=== PATIENT | female | born 1945 | race Caucasian/White ===

== ENCOUNTER 2019-10-29 12:10 | Emergency (ER) | payer OTHER, MEDICAID, SELFPAY ==
[2019-10-29 12:21] VITALS: BP 183/78; PULSE 80; RESP 18; TEMP 37.3; O2SAT 100
--- NOTE | 2019-10-29 12:32 | ED.GENADULT ---
HPI - General Adult General Chief complaint: Extremity Injury, Lower Stated complaint: Left foot injury Time Seen by Provider: 10/29/19 12:32 Source: patient and RN notes reviewed Limitations: no limitations History of Present Illness HPI narrative: 74-year-old female presents today with needing a tetanus vaccine update and complaints of left foot pain and swelling after stepping on a nail for 1 day. Cleansed area with alcohol and peroxide without relief. Hurts to bear weight. No radiation of pain. No numbness, tingling, or loss of mobility. Exacerbating factor applying weight. Denies inability to bear weight. Denies discoloration. Denies suspect foreign body. Denies fever or chills. Tetanus not up-to-date, will update today. Denies headaches, weakness, fatigue, myalgia. Denies chest pain or dyspnea. Denies cough, rhinorrhea, congestion, sore throat, nausea, vomiting, abdominal pain, and diarrhea. Tolerating po intake well. Denies recent traveling. Denies concerns for COVID-19 or exposures been home since [id number] order except for essential household needs and returned home. Remains active. Some parts of this dictation were generated by voice recognition software and may contain typographical and/or grammatical inaccuracies. Related Data Home Medications Medication Instructions Recorded Confirmed aspirin 81 mg tablet,delayed 81 mg PO DAILY 06/12/19 release ciclopirox 8 % topical solution 1 applic TOPICAL DAILY 06/12/19 clobetasol 0.05 % topical cream 1 applic TOPICAL QAM AND QPM 06/12/19 Allergies Allergy/AdvReac Type Severity Reaction Status Date / Time Jlnpwax-Hsv-Gfz Reductase Allergy Unknown unknown Verified 06/12/19 10:06 Inhibitor tramadol AdvReac Unknown Other Verified 04/24/17 13:37 Review of Systems Review of Systems: Narrative: CONSTITUTIONAL: Denies fever, chills, sweats. EYES: Denies visual changes, redness, discharge. ENT: Denies rhinorrhea, congestion, sore throat, otalgia. CARDIOVASCULAR: Denies chest pain, palpitations, edema. RESPIRATORY: Denies dyspnea, wheezing, cough. GASTROINTESTINAL: Denies abdominal pain, nausea, vomiting, diarrhea. GENITOURINARY: Denies dysuria, hematuria, abnormal discharge. SKIN: Denies rash or itching. MUSCULOSKELETAL: Denies acute back pain or myalgia. Complains of pain and swelling to left foot. NEUROLOGIC: Denies numbness or focal weakness. PSYCHIATRIC: Denies anxiety or depression. [facility] Past Medical History Medical History BP (high blood pressure) CAD (coronary artery disease), [place] coronary artery Chronic kidney disease, stage 3 (moderate) Diabetic neuropathy associated with type 2 diabetes mellitus MALIA (generalized anxiety disorder) Mixed hyperlipidemia Psoriasis Type 2 diabetes mellitus with diabetic chronic kidney disease Surgical History Surgical History H/O parathyroidectomy S/P CABG x 3 Family History Family History Mother Family history of diabetes mellitus in first degree relative Family history of heart disease in male family member before age 55 Hypertension Family history of type 2 diabetes mellitus Patient's mother is Father Family history of heart disease in male family member before age 55 Sibling Acute myocardial infarction, Onset Age: 68 Social History Social History Smoking packs per day: 0.5 Smoking cigarettes per day: 10.0 Smoking status: Former smoker Tobacco type: cigarettes Second hand tobacco smoke exposure: No Smoking end date: 07/11/1968 Alcohol intake: never Substance use: never Substance use type: does not use Gender identity (if verbalized by the patient): Female Comments At time of signature, agree with nurse sammy costa
[2019-10-29] MEDS: TETANUS/DIPHTHERIA TOXOIDS ADSORB 0.5 ML VIAL (*BKC) IM (12:47)
[2019-10-29 12:52] VITALS: BP 170/74
== END 2019-10-29 13:07 | disposition home or self-care (01) ==
PROVIDERS: Emergency Provider Nurse Practitioner Family; PCP Family Medicine
DX: S91.332A Puncture wound without foreign body, left foot, initial encounter (principal); I25.10 Atherosclerotic heart disease of native coronary artery without angina pectoris; I12.9 Hypertensive chronic kidney disease with stage 1 through stage 4 chronic kidney disease, or unspecified chronic kidney disease; E11.22 Type 2 diabetes mellitus with diabetic chronic kidney disease; N18.9 Chronic kidney disease, unspecified; N18.3 Chronic kidney disease, stage 3 (moderate); Z79.82 Long term (current) use of aspirin; Z23 Encounter for immunization; E78.2 Mixed hyperlipidemia; E11.40 Type 2 diabetes mellitus with diabetic neuropathy, unspecified; Z95.1 Presence of aortocoronary bypass graft; E89.2 Postprocedural hypoparathyroidism; Z87.891 Personal history of nicotine dependence; W45.0XXA Nail entering through skin, initial encounter
CPT/HCPCS: 90471; 90714; 99213; G0463

== ENCOUNTER 2021-01-01 08:20 | Outpatient (CLI) | payer OTHER, SELFPAY ==
--- NOTE | ~2021-01-01 | US_ITS ---
EXAMINATION: US carotid duplex BI DATE: 01/01/2021 09:10 INDICATION: Bilateral carotid bruits TECHNIQUE: Grayscale, color Doppler, and pulsed Doppler images of the cervical carotid arteries were obtained. The degree of vessel stenosis is placed in one of the following categories: normal, <50%, 5 0-69%, >=70% but less than near-occlusion, near-occlusion, or total occlusion. Note that percent sten osis relative to normal distal artery lumen diameter is indirectly measured from velocity measurement s as described by Siddhartha, et al. Radiology 2003; 229:340-346. Notes: Normal: Peak systolic velocity <125 centimeters/sec and no plaque <50%. Peak systolic velocity <125 ( EDV <40; ICA/CCA PSV ratio <2.0; used these factors only a tandem lesions or low cardiac output or co ntralateral disease) 50-69 %: PSV 125-230 (EDV 40-100; ratio 2-4) >= 70% but less than near occlusion: PSV greater than 230 (EDV > 100; ratio> 4.0) Near Occlusion: PSV that is variable; markedly narrowed lumen Occlusion: Absent flow on color/spectral Doppler and no lumen on cheng scale. COMPARISON: None. FINDINGS: RIGHT: The right common carotid artery (CCA) peak systolic velocity (PSV) is 68 cm/s. The right internal car otid artery (ICA) PSV is 134 cm/s. The right ICA end-diastolic velocity (EDV) is 29 cm/s. The right I CA/CCA PSV ratio is 2.0. The external carotid artery (ECA) PSV is 204 cm/s. There is antegrade flow i n the right vertebral artery. LEFT: The left CCA PSV is 69 cm/s. The left ICA PSV is 121 cm/s. The left ICA EDV is 35 cm/s. The left ICA/ CCA PSV ratio is 1.8. The ECA PSV is 106 cm/s. There is antegrade flow in the left vertebral artery. IMPRESSION: 1. 50-69% stenosis in the right internal carotid artery by sonographic criteria. 2. Less than 50% stenosis in the left internal carotid artery by sonographic criteria. Reviewed, dictated and finalized at location B. IMPRESSION: 1. 50-69% stenosis in the right internal carotid artery by sonographic criteria . 2. Less than 50% stenosis in the left internal carotid artery by sonographic cr iteria.
== END 2021-01-01 08:21 | disposition home or self-care (01) ==
PROVIDERS: PCP Family Medicine; Visit Provider Internal Medicine Cardiovascular Disease
DX: I65.23 Occlusion and stenosis of bilateral carotid arteries (principal); R09.89 Other specified symptoms and signs involving the circulatory and respiratory systems
CPT/HCPCS: 93880

== ENCOUNTER → 2021-01-15 10:03 | Outpatient (CLI) | payer OTHER, SELFPAY ==
--- NOTE | ~2021-01-15 | DEXA_ITS ---
Bone Density Report Name: Adina Russell Age: 75 Sex: Female Ethnicity: White Date of : 1945 Indication: postmenopausal; screening for osteoporosis; Referring Provider: Cheryl Zabala Study: Bone densitometry was performed. Exam Date: January 15, 2021 Accession number: [id number] Bone Density: Region BMD T-score Z-score Classification AP Spine (L1-L4) 1.170 1.1 3.5 Normal Femoral Neck (Left) 0.726 -1.1 0.9 Osteopenia Total Hip (Left) 0.897 -0.4 1.4 Normal Femoral Neck (Right) 0.807 -0.4 1.7 Normal Total Hip (Right) 0.981 0.3 2.1 Normal Total Hip Mean 0.939 -0.1 1.8 Normal World Health Organization criteria for BMD impression classify patients as: Normal (T-score at or above -1.0), Osteopenia (T-score between -1.0 and -2.5), or Osteoporosis (T-score at or below -2.5). 10-year Fracture Risk(1): Major Osteoporotic Fracture 9.4% Hip Fracture 1.4% Reported Risk Factors: [place] (), Neck BMD=0.726, BMI=32.2 (1) FRAX(R) Version 3.08. Fracture probability calculated for an untreated patient. Fracture probability may be lower if the patient has received treatment. Previous Exams: Region Exam Age BMD T-score BMD Change BMD Change Date g/cm2 vs Baseline vs Previous AP Spine(L1-L4) 01/15/2021 75 1.170 1.1 0.024* 0.024* 09/05/2015 69 1.146 0.9 Total Hip(Left) 01/15/2021 75 0.897 -0.4 -0.005 -0.005 09/05/2015 69 0.902 -0.3 Total Hip(Right) 01/15/2021 75 0.981 0.3 0.015 0.015 09/05/2015 69 0.965 0.2 *Denotes significance at 95% confidence level, LSC for AP Spine = 0.022 g/cm2, LSC for Total Hip = 0.027 g/cm2 Clinical Information Provided by Patient: Has used the following medications: Vitamin D, MTV Patient maximum height was 65 Menopause Age: 60 No regular weight bearing exercise Drinks caffeinated beverages Onset of menses at age 13 Number of children 3 Missed period for more than 6 months in a row Impression: The patient has low bone mass, based on the Left Femoral Neck T-score. The patient has an estimated ten-year risk of hip fracture of 1.4% and an estimated ten-year risk of major fracture of 9.4%, based on the WHO FRAX algorithm. No significant bone loss was observed. Discussion: BONE DENSITY IS LOW AT ONE OR MORE SKELETAL SITES. This patient's lowest T-score is low at one or more skeletal sites. It meets the World Health Organizatio
--- NOTE | ~2021-01-15 | MM_ITS ---
EXAMINATION: MM screening daniel BI w tanika HISTORY: Screening mammogram, family history of breast cancer in her sister. TECHNIQUE: Craniocaudal and mediolateral oblique 3-D tomosynthesis images were obtained and synthetic 2-D images were generated. CAD analysis was submitted and interpreted. COMPARISON: 05/01/2019, 03/29/2017, 09/05/2015 BREAST PARENCHYMAL COMPOSITION: There are scattered areas of fibroglandular density. FINDINGS: Scattered benign-appearing calcifications are present. There is no evidence of suspicious m ass, calcification, or architectural distortion to suggest malignancy in either breast. There has bee n no suspicious interval change. IMPRESSION: 1. No mammographic evidence of malignancy. 2. Recommend routine screening mammography in one year. BI-RADS Category 2: Benign finding(s). Reviewed, dictated and finalized at location A.
== END ==
PROVIDERS: PCP Family Medicine; Visit Provider Physician Assistant
DX: Z12.31 Encounter for screening mammogram for malignant neoplasm of breast (principal); Z78.0 Asymptomatic menopausal state; M85.852 Other specified disorders of bone density and structure, left thigh
CPT/HCPCS: 77063; 77067; 77080

== ENCOUNTER → 2021-03-09 11:47 | Outpatient (CLI) | payer OTHER, MEDICAID, SELFPAY ==
--- NOTE | ~2021-03-09 | US_ITS ---
EXAMINATION: US renal BI EXAM DATE: 03/09/2021 12:02 INDICATION: Acute kidney failure, not otherwise specified TECHNIQUE: Multiple grayscale and Doppler images of the kidneys were obtained (by a technologist who performed the scan) and subsequently reviewed. There is no prior study for comparison. FINDINGS: Right kidney: There is normal contour and echogenicity. It measures 10.7 x 4.3 x 5.8 centimeters. T here are no focal renal lesions identified. There is no hydronephrosis. Left kidney: There is normal contour and echogenicity. It measures 11.5 x 4.8 x 5.0 centimeters. The re is a cyst in the superior pole measuring 3 cm. There is no hydronephrosis. Bladder unremarkable. IMPRESSION: 1. Sonographically unremarkable kidneys. Reviewed, dictated and finalized at location B.
== END ==
PROVIDERS: PCP Family Medicine; Visit Provider Internal Medicine Nephrology
DX: N17.9 Acute kidney failure, unspecified (principal)
CPT/HCPCS: 76775

== ENCOUNTER 2021-06-02 08:28 | Emergency (ER) | payer OTHER, SELFPAY ==
[2021-06-02 08:35] VITALS: BP 158/68; PULSE 75; RESP 18; TEMP 36.8; O2SAT 98
[2021-06-02 08:42] VITALS: BP 158/68; PULSE 18; RESP 18; O2SAT 98
--- NOTE | 2021-06-02 08:50 | ED.BACK ---
HPI - Back Pain/Injury General Chief Complaint: Back Pain/Injury Stated Complaint: Think I have a sciatic nerve pain Time Seen by Provider: 06/02/21 08:41 Source: patient Mode of arrival: ambulatory Limitations: no limitations History of Present Illness HPI Narrative: Patient is a 75-year-old female complaining of left buttocks pain radiating to her left lower extremity, 8 out of 10, sharp, worse with movement started yesterday. Patient states that she has a history of sciatica. Patient denies any injury. Patient denies any numbness, weakness or incontinence. Patient denies any chest pain, shortness of breath, abdominal pain, flank pain, nausea, vomiting, urinary symptoms, fever or chills. Related Data Home Medications Medication Instructions Recorded Confirmed aspirin 81 mg tablet,delayed 81 mg PO DAILY 06/12/19 05/14/21 release Allergies Allergy/AdvReac Type Severity Reaction Status Date / Time Evmxggw-AEW-NtN Reductase Allergy Unknown unknown Verified 05/14/21 09:08 Inhibitor [Ihdugnt-Dss-Pte Reductase Inhibitor] tramadol AdvReac Unknown Other Verified 05/14/21 09:08 Review of Systems Review of Systems: All systems reviewed & are unremarkable except as noted in HPI and below Constitutional: Constitutional: Denies body ache(s), Denies chills, Denies excessive sweating, Denies fatigue, Denies fever(s), Denies headache(s), Denies lethargy, Denies malaise, Denies weakness and Denies weight loss Eyes: Eyes: Denies blurry vision, Denies change in vision and Denies loss of vision ENT: Denies dizziness, Denies ear discharge, Denies headache(s), Denies lip swelling, Denies epistaxis, Denies nasal congestion, Denies neck pain, Denies throat swelling and Denies tongue swelling Cardiovascular: Cardiovascular: Denies chest pain, Denies chest pain at rest, Denies chest pain with activity, Denies diaphoresis, Denies rapid heart rate, Denies edema, Denies irregular heart rhythm, Denies lightheadedness, Denies palpitations, Denies dyspnea and Denies dyspnea on exertion Respiratory: Respiratory: Denies chest congestion, Denies cough, Denies hemoptysis, Denies dyspnea and Denies dyspnea on exertion Gastrointestinal: Gastrointestinal: Denies abdominal pain, Denies melena, Denies hematochezia, Denies diarrhea, Denies nausea, Denies vomiting and Denies hematemesis Musculoskeletal: Musculoskeletal: Denies abnormal gait, Denies deformity, Denies joint swelling, Denies limited range of motion, Denies neck pain and Denies numbness Neurologic: Denies Abnormal speech present, Denies abnormal gait, Denies confusion, Denies dizziness, Denies headache(s), Denies focal weakness, Denies loss of vision, Denies numbness, Denies Other visual disturbances, Denies Sensory deficit (Neuro) and Denies weakness Psychiatric: Psychiatric: Denies confusion, Denies depression, Denies auditory hallucinations, Denies homicidal ideation and Denies suicidal ideation Endocrine: Endocrine: Denies cold intolerance, Denies excessive sweating, Denies fatigue, Denies heat intolerance and Denies palpitations Hematologic/Lymphatic: Hematologic/Lymphatic: Denies easy bleeding and Denies easy bruising Allergic/Immunologic: Allergic/Immunologic: Denies lip swelling, Denies throat swelling and Denies tongue swelling PMFSH Past Medical History Medical History BP (high blood pressure) CAD (coronary artery disease), [place] coronary artery Chronic kidney disease, stage 3 (moderate) Diabetic neuropathy associated with type 2 diabetes mellitus MALIA (generalized anxiety disorder) History of tobacco use Mixed hyperlipidemia Psoriasis 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
[2021-06-02] MEDS: KETOROLAC 30 MG/ML VIAL (*BKC) IM (10:04)
[2021-06-02] MEDS: diazePAM INJ (*CRX) 10 MG/2 ML SYRINGE 5 MG IM (10:06)
[2021-06-02] MEDS: HYDROcodone/acetaminophen (*CRX) 5-325 MG TABLET 1 TAB PO (10:06)
[2021-06-02 10:58] VITALS: BP 137/66; PULSE 76; RESP 18; O2SAT 98
== END 2021-06-02 10:59 | disposition home or self-care (01) ==
PROVIDERS: Emergency Provider Emergency Medicine; PCP Family Medicine
DX: M54.32 Sciatica, left side (principal); I25.10 Atherosclerotic heart disease of native coronary artery without angina pectoris; I12.9 Hypertensive chronic kidney disease with stage 1 through stage 4 chronic kidney disease, or unspecified chronic kidney disease; E11.22 Type 2 diabetes mellitus with diabetic chronic kidney disease; N18.30 Chronic kidney disease, stage 3 unspecified; Z87.891 Personal history of nicotine dependence
CPT/HCPCS: 96372; 99284; A9270; J1885; J3360

== ENCOUNTER → 2022-02-12 09:41 | Outpatient (CLI) | payer OTHER, SELFPAY ==
--- NOTE | ~2022-02-12 | MM_ITS ---
EXAMINATION: MM screening daniel BI w tanika HISTORY: Screening TECHNIQUE: Craniocaudal and mediolateral oblique 3-D tomosynthesis images were obtained and synthetic 2-D images were generated. CAD analysis was submitted and interpreted. COMPARISON: Comparison to multiple prior studies sequentially, with oldest reviewed study dated 09/05. BREAST PARENCHYMAL COMPOSITION: There are scattered areas of fibroglandular density. FINDINGS: There is no evidence of suspicious mass, calcification, or architectural distortion to sugg est malignancy in either breast. There has been no suspicious interval change. IMPRESSION: 1. No mammographic evidence of malignancy. 2. Recommend routine screening mammography in one year. BI-RADS Category 1: Negative Reviewed, dictated and finalized at location A.
== END ==
PROVIDERS: PCP Family Medicine; Visit Provider Physician Assistant
DX: Z12.31 Encounter for screening mammogram for malignant neoplasm of breast (principal)
CPT/HCPCS: 77063; 77067

== ENCOUNTER 2022-08-02 10:47 | Outpatient (CLI) | payer OTHER, SELFPAY ==
--- NOTE | ~2022-08-02 | XR_ITS ---
Right Knee Technique: AP, lateral, and sunrise views were obtained. Clinical History: Pain Findings: No fracture or dislocation is seen. Osseous alignment is anatomic. Mild tricompartmental de generative spurring noted. There is mild chondrocalcinosis of the menisci. No joint effusion is seen. 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 Reviewed, dictated and finalized at location M. 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
== END 2022-08-02 10:48 | disposition home or self-care (01) ==
PROVIDERS: PCP Family Medicine; Visit Provider Nurse Practitioner Gerontology
DX: M17.11 Unilateral primary osteoarthritis, right knee (principal)
CPT/HCPCS: 73564

== ENCOUNTER → 2023-02-01 09:42 | Outpatient (CLI) | payer OTHER, SELFPAY ==
--- NOTE | ~2023-02-01 | XR_ITS ---
Lumbosacral Spine: AP and lateral views Clinical History: Pain Findings: The normal lordotic curve is maintained. No fracture seen. There is 5 mm anterolisthesis of L3 over L4. There is moderate to advanced facet arthropathy throughout the lumbar spine. The sacroil iac joints are normally outlined. Impression: 5 mm anterolisthesis of L3 over L4. Facet joint degenerative change throughout the lumbar spine, as detailed above. Reviewed, dictated and finalized at location M. Impression: 5 mm anterolisthesis of L3 over L4. Facet joint degenerative change throughout the lumbar spine, as detailed above.
== END ==
PROVIDERS: PCP Family Medicine; Visit Provider Family Medicine
DX: M54.50 Low back pain, unspecified (principal); M43.16 Spondylolisthesis, lumbar region
CPT/HCPCS: 72100

== ENCOUNTER 2023-03-23 00:26 | Day surgery (SDC) | payer OTHER, SELFPAY ==
[2023-03-22 12:55] VITALS: BMI 32.7
[2023-03-23] VITALS (11 sets, daily range): BP systolic 136–178; BP diastolic 59–77; PULSE 63–87; RESP 10–18; TEMP 36.2–36.4; O2SAT 97–100; BMI 32.1
--- NOTE | 2023-03-23 11:00 | PM.IMHP ---
H&P: HPI History of Present Illness Date/Time: 03/23/23 11:00 Chief Complaint: Possible mass on the aortic valve, here for a transesophageal echo Narrative: Adina Russell is a 77-year-old female with history of CABG x3 in September 06 teen, hypertension diabetes hyperlipidemia. She had a recent echo for new heart murmur, which showed mild aortic stenosis. 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 Outpatient testing revealed negative blood culture, normal sed rate and normal see RP. She is here for transesophageal echo for further elucidation of the aortic valve mass. She is feeling well today has been NPO. Review of Systems Constitutional: Constitutional: Denies fever(s) Eyes: Eyes: Reports no additional eye complaints ENT: Denies dysphagia Comments: No history of esophageal problems Cardiovascular: Cardiovascular: Denies chest pain, Denies pedal edema, Denies lightheadedness and Denies dyspnea Respiratory: Respiratory: Denies chest congestion and Denies dyspnea Gastrointestinal: Gastrointestinal: Denies abdominal pain and Denies hematochezia Genitourinary: Genitourinary: Reports no additional female genitourinary complaints Musculoskeletal: Musculoskeletal: Reports no additional musculoskeletal complaints Integumentary/Breasts: Skin/Breast: Reports system reviewed and no additional complaints, except as docu Neurologic: Reports system reviewed and no additional complaints, except as documented and Denies behavioral changes Comments: No history of TIAs or strokes Psychiatric: Psychiatric: Denies behavioral changes [facility] Past Medical History Medical History (Updated 03/23/23 @ 11:04 by Luz Maradiaga MD) Abnormal stress test Aortic stenosis B12 deficiency Benign essential hypertension BP (high blood pressure) CAD (coronary artery disease), [place] coronary artery Chronic kidney disease, stage 3 (moderate) Chronic kidney disease, stage II (mild) Controlled type 2 diabetes mellitus with stage 3 chronic kidney disease Diabetic neuropathy associated with type 2 diabetes mellitus DM neuropathy, type II diabetes mellitus DM renal manif type II DM w/o complication type II Dysuria MALIA (generalized anxiety disorder) MALIA (generalized anxiety disorder) History of tobacco use Left knee pain Living will, counseling/discussion Magnesium deficiency Mixed hyperlipidemia Mixed hyperlipidemia Neuropathy involving both lower extremities PAC (premature atrial contraction) Postmenopausal Psoriasis Psoriasis Right hip pain Sacroiliac joint pain Sciatic leg pain Screening for breast cancer Toenail fungus Trochanteric bursitis, left hip 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 Zelaya, at [facility] on 08/24/2016. Family History Family History Mother Family history of diabetes mellitus in first degree relative Family history of heart disease in male family member before age 55 Hypertension Family history of type 2 diabetes mellitus Patient's mother is Father Family history of heart disease in male family member before age 55 Sibling Acute myocardial infarction, Onset Age: 68 Social History Social History Social History: Smoking packs per day: 0.5 Smoking cigarettes per day: 10.0 Years smoked: 10 Smoking pack-years: 5.00 Smoking status: Former smoker Tobacco type: cigarettes Se
--- NOTE | 2023-03-23 11:05 | WPDMODSED ---
Moderate Sedation Note-Pt Data Patient Data Diagnosis: Possible mass on the aortic valve, here for BRADEN to evaluate for fibroelastoma etc.. Present Complaint: Adina Russell is a 77-year-old female with history of CABG x3 in September 06 teen, hypertension diabetes hyperlipidemia.? She had a recent echo for new heart murmur, which showed mild aortic stenosis.? 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 Outpatient testing revealed negative blood culture, normal sed rate and normal see RP.? She is here for transesophageal echo for further elucidation of the aortic valve mass. Procedure to be performed/Plan: Conscious sedation Transesophageal echo Allergies Allergy/AdvReac Type Severity Reaction Status Date / Time Gsdbpfl-RUQ-ZjO Reductase Allergy Unknown unknown Verified 02/01/23 09:14 Inhibitor [Gacxjfq-Qdj-Zls Reductase Inhibitor] tramadol AdvReac Unknown Other Verified 02/01/23 09:14 Home Medications Medication Instructions Recorded Confirmed Type aspirin 81 mg tablet,delayed 81 mg PO DAILY 06/12/19 03/22/23 History release (Adult Low Dose Aspirin) blood-glucose meter (Contour Next #1 ea 08/17/21 02/10/23 Rx Meter) diclofenac sodium 1 % topical gel 4 g topical QID #100 grams 12/01/21 03/22/23 Rx blood sugar diagnostic (Contour #300 ea 04/12/22 02/10/23 Rx Next Test Strips) glimepiride 4 mg tablet 4 mg PO QAM #90 tabs 04/12/22 03/22/23 Rx atorvastatin 40 mg tablet 40 mg PO DAILY #100 tabs 10/10/22 03/22/23 Rx gabapentin 100 mg capsule 100 mg PO TID PRN pain #90 caps 01/20/23 03/22/23 Rx amlodipine 10 mg tablet 10 mg PO DAILY 03/22/23 03/22/23 History carvedilol 25 mg tablet 25 mg PO BID 03/22/23 03/22/23 History clobetasol 0.05 % topical cream 1 applic topical QAM AND QPM PRN 03/22/23 03/22/23 History psoriasis hydrochlorothiazide 25 mg tablet 25 mg PO DAILY 03/22/23 03/22/23 History isosorbide mononitrate 30 mg 30 mg PO BID 03/22/23 03/22/23 History tablet,extended release 24 hr linagliptin 5 mg tablet (Tradjenta) 5 mg PO DAILY 03/22/23 03/22/23 History losartan 50 mg tablet 50 mg PO BID 03/22/23 03/22/23 History metformin 1,000 mg tablet 1,000 mg PO BID 03/22/23 03/22/23 History Sedation/Anesthesia: No previous sedation/anesthesia problems (including family history). [facility] Past Medical History Medical History (Updated 03/23/23 @ 11:04 by Luz Maradiaga MD) Abnormal stress test Aortic stenosis B12 deficiency Benign essential hypertension BP (high blood pressure) CAD (coronary artery disease), [place] coronary artery Chronic kidney disease, stage 3 (moderate) Chronic kidney disease, stage II (mild) Controlled type 2 diabetes mellitus with stage 3 chronic kidney disease Diabetic neuropathy associated with type 2 diabetes mellitus DM neuropathy, type II diabetes mellitus DM renal manif type II DM w/o complication type II Dysuria MALIA (generalized anxiety disorder) MALIA (generalized anxiety disorder) History of tobacco use Left knee pain Living will, counseling/discussion Magnesium deficiency Mixed hyperlipidemia Mixed hyperlipidemia Neuropathy involving both lower extremities PAC (premature atrial contraction) Postmenopausal Psoriasis Psoriasis Right hip pain Sacroiliac joint pain Sciatic leg pain Screening for breast cancer Toenail fungus Trochanteric bursitis, left hip 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 Zelaya, at [facility] on 08/24/2016. Family History Family History (Reviewed 03/23/23 @ 11:03 by
--- NOTE | 2023-03-23 12:03 | PM.OP ---
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
--- NOTE | 2023-03-23 12:06 | P.PCNTEE_ITS ---
[facility] TransEsophageal Echocardiogram Date of procedure: 03/23/23 Procedure Type: Conscious sedation Transesophageal echo Diagnosis: Possible mass on aortic valve Indications: Adina Russell is a 77-year-old female with history of CABG x3 in September 06 teen, hypertension diabetes hyperlipidemia.? She had a recent echo for new heart murmur, which showed mild aortic stenosis.? 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 Outpatient testing revealed negative blood culture, normal sed rate and normal see RP.? She is here for transesophageal echo for further elucidation of the aortic valve mass. Image Quality: Excellent Findings: Conscious sedation: Assessment: The patient has no history of anesthesia problems. The patient's oropharynx is clear. The patient was deemed to be a good candidate for conscious sedation. The patient had continuous hemodynamic and oximetric monitoring during the procedure. Start time: 11:40 a.m. Completion time: 12:03 p.m. Total conscious sedation time: 23 minutes Medications Used: Fentanyl 100 mcg, Versed 2 mg IV push Trained observer: Thania Gonzalez RN Outcome: The patient tolerated the procedure well with no complications. Procedure: After informed consent the patient had Hurricaine spray the hypopharynx. The patient had conscious sedation as described above. The transesophageal echo probe was introduced in the esophagus without difficulty. Imaging was obtained in multiplane views. Agitated saline was injected to evaluate for intracardiac shunting. The patient tolerated the procedure well with no complications. Findings: The left atrium was mildly dilated. There is no thrombus present in the left atrium or left atrial appendage. The atrial septum appeared intact but mildly aneurysmal. Mitral valve appeared normal, with no stenosis or prolapse. The left ventricle had had normal size with mild LVH and with good contractility of all segments. The ejection fraction is estimated to be: 60%. Aortic valve was very sclerotic, with minimal calcification. A somewhat mobile thin mass measuring 7-9 mm in length is on ventricular aspect of the valve. The aortic root was normal. The ascending aorta and aortic arch were normal. The descending thoracic aorta had mild to moderate aortic atherosclerosis. The right atrium, tricuspid valve, right ventricle, pulmonic valve and pulmonic artery were all normal. A Chiari complex is noted in the right atrium. There is no pericardial effusion. When agitated saline was injected intravenously there was evidence of a small amount of intracardiac shunting to the left atrium. Colorflow Doppler Findings: Trace mitral regurgitation but no other significant valve regurgitation. 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 Continue periodic monitoring, office visits and echocardiograph
== END 2023-03-23 13:19 | disposition home or self-care (01) ==
PROVIDERS: PCP Family Medicine; Visit Provider Internal Medicine Cardiovascular Disease
PROC: (CPT 93312; principal; 2023-03-23 11:30)
DX: I35.8 Other nonrheumatic aortic valve disorders (principal); R93.1 Abnormal findings on diagnostic imaging of heart and coronary circulation; I25.10 Atherosclerotic heart disease of native coronary artery without angina pectoris; I12.9 Hypertensive chronic kidney disease with stage 1 through stage 4 chronic kidney disease, or unspecified chronic kidney disease; E11.22 Type 2 diabetes mellitus with diabetic chronic kidney disease; N18.30 Chronic kidney disease, stage 3 unspecified; E11.40 Type 2 diabetes mellitus with diabetic neuropathy, unspecified; F41.1 Generalized anxiety disorder; E78.2 Mixed hyperlipidemia; Z95.1 Presence of aortocoronary bypass graft; Z87.891 Personal history of nicotine dependence; Z79.82 Long term (current) use of aspirin; Z79.84 Long term (current) use of oral hypoglycemic drugs
CPT/HCPCS: 93312; 93320; 93325; J2250; J3010; J7040

== ENCOUNTER 2024-08-13 10:04 | Emergency (ER) | payer OTHER, SELFPAY ==
--- NOTE | ~2024-08-13 | XR_ITS ---
HISTORY: LEFT SIDE PAIN AFTER FALL- HX OF SCIATICA COMPARISON: 02/01/2023 TECHNIQUE: 4 view lumbar spine. FINDINGS: Redemonstration of trace anterolisthesis of L3 onto L4. Remainder of alignment is preserved. There are 5 non-rib bearing lumbar vertebral bodies. Disc spaces and vertebral body heights are well maintained. There are no lytic or sclerotic lesions. Paraspinal soft tissues are normal. Oblique views demonstrate significant degenerative disease with marked facet arthropathy. No acute compression fractures are identified within the lumbar spine. Compression of the superior endplate of T11 and possibly T10 are identified, age indeterminate and no t completely included on the previous study. IMPRESSION: No acute compression fracture within the lumbar spine. Severe degenerative disease, largely unchanged from 2022 examination. Compression of the superior endplate of T11 and possibly T10 are identified, age indeterminate and no t completely included on the previous study. Reviewed, dictated and finalized at location A. A DIRECTOR IMPRESSION: No acute compression fracture within the lumbar spine. Severe degenerative disease, largely unchanged from 2022 examination. Compression of the superior endplate of T11 and possibly T10 are identified, ag e indeterminate and not completely included on the previous study.
--- NOTE | ~2024-08-13 | CT_ITS ---
History: Fall PROCEDURE: CT head without contrast. COMPARISON: 02/07/2013 TECHNIQUE: Axial imaging of the head performed from the skull base to the vertex without IV contrast. Sagittal a nd coronal reformations obtained. DLP: 605 mGy-cm FINDINGS: The ventricles are enlarged. The dilatation of the ventricles is proportional to the degree of sulcal prominence, not uncommon in the senescent brain. Decreased attenuation is identified within the periventricular white matter, likely secondary to micr ovascular ischemic disease, in a patient of this age. Bilateral lacunar infarcts, unchanged from 2013 examination. There is no mass, mass effect or midline shift. There is no abnormal extra-axial fluid collection or intracranial hemorrhage. Visualized paranasal sinuses are clear. The mastoid air cells are well aerated. No acute displaced fractures within the overlying cranium. Impression: No acute intracranial hemorrhage or suspicious mass effect. Reviewed, dictated and finalized at location A. O AND SOUND RECORDER Impression: No acute intracranial hemorrhage or suspicious mass effect.
[2024-08-13 10:19] VITALS: BP 140/66; PULSE 67; RESP 18; TEMP 36.3; O2SAT 100
--- OUTSIDE RECORDS SUMMARY | 2024-08-13 10:57 | XMS_ITS | Referral Summary ---
Author Organization [facility] Address [address] [place] [address] Care Team Providers Care Clinical Investigator Name Role Phone Irene Hidalgo MD Primary Care Provider Allergies Active Allergy Reactions Criticality Noted Date Comments Dapagliflozin Other (See comments) Low 01/10/2023 Didn't feel well when she took Farxiga and prednisone, upset stomach and high blood sugar. Prednisone Other (See comments) Low 01/10/2023 Didn't like the high blood sugars this caused. Medications aspirin (ASPIRIN CHILDRENS) 81 mg chewable tablet chew 1 tablet by oral route every day 0 0 07/14/19 17 Active glimepiride (AMARYL) 4 mg tablet take 1 tablet by oral route 2 times every day 0 0 07/14/19 17 Active Additional Information Patient taking differently:4 mgoral Daily, Reported on 05/27/2022 carvediloL (COREG) 25 mg tabletIndications:Es sential hypertension Take 1 tablet (25 mg total) by mouth 2 (two) times a day with meals 180 tablet 3 12/26/19 20 Active atorvastatin (LIPITOR) 40 mg tabletIndications:Pu re hypercholesterolemia ,Coronary arteriosclerosis in [place] artery Take 1 tablet (40 mg total) by mouth daily 90 tablet 3 12/26/19 20 Active isosorbide mononitrate ER (IMDUR) 30 mg 24 hr tablet Take 1 tablet (30 mg total) by mouth 2 (two) times a day Active magnesium oxide (MAG-OX) 400 mg (241.3 mg elemental magnesium) tabletIndications:Mu scle cramps,Hypomagnesemi a TAKE 1 TABLET BY MOUTH EVERY DAY NEEDED FOR MUSCLE CRAMPS 30 tablet 1 03/02/20 Active losartan (COZAAR) 50 mg tablet TAKE 1 TABLET BY MOUTH 1 TIME EACH DAY. 11/22/19 22 Active amLODIPine (NORVASC) 10 mg tablet Take 0.5 tablets (5 mg total) by mouth daily 02/04/20 22 Active Contour Next Test Strips strip USE TO TEST BLOOD SUGAR TWICE A DAY 01/25/20 22 Active hydroCHLOROthiazide (HYDRODIURIL) 25 mg tablet TAKE 1 TABLET BY MOUTH 1 TIME EACH DAY. 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 shoulder 04/23/2022 Overview (04/23/2022): Added automatically from request for surgery [id number] Hyperlipidemia associated with type 2 diabetes m loriitus 12/28/2021 CKD stage 2 due to type 2 diabetes mellitus ([facility]) 12/28/2021 Nonspecific abnormal results of function study o f kidney 02/28/2021 Persistent proteinuria 02/28/2021 Bilateral carotid bruits 12/17/2020 Muscle cramps 12/17/2020 Hypomagnesemia 12/17/2020 Vitamin D deficiency 12/26/2019 PAC (premature atrial contraction) 09/05/2017 History of coronary artery bypass surgery 2016 Overview (12/03/2016): Hx of CABG Coronary arteriosclerosis in [place] artery 09/16 Overview (12/03/2016): Coronary artery disease involving [place] coronary artery of [place] heart without angina pectoris Presence of aortocoronary bypass graft 7 Overview (04/21/2022): Hx of CABG Type 2 diabetes mellitus 07/14/2016 Overview (10/14/2016): Type 2 diabetes mellitus with hyperglycemia, without long-term current use of insulin Essential hypertension 07/14/2016 Overview (10/14/2016): Hypertension, essential Dyspnea on exertion 07/14/2016 Overview (10/14/2016): KINCAID (dyspnea on exertion) Pure hypercholesterolemia 07/14/2016 Overview (10/14/2016): Hyperlipidemia, unspecified Dyslipidemia 07/14/2016 Overview (04/21/2022): Hyperlipidemia, unspecified Resolved Problems Problem Noted Date Diagnosed Date Resolved Date Chronic coronary artery disease 07/22/2016 12/26/2019 Abnormal cardiovascular stress test 07/14/2016 03/02/2017 Overview (10/14/2016): Abnormal stress test Social History Tobacco Use Types Packs/Day Years Used Date Smoking Tobacco: Former Smokeless Tobacco: Never Comments:as teenager Alcohol Use Standard Drinks/Week Comments No 0 (1 standard drink = 0.6 oz pur e alcohol) AUDIT-C Answer Date Recorded Q1: How often do you have a drink containing alcohol? Never 05/13/2022 Q2: How many drinks containi ng alcohol do you have on a typical day when you are drinking? 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 Gender Identity Not on file Sexual Orientation Not on file Last Filed Vital Signs Vital Sign Reading Time Taken Comments Blood Pressure 110/50 01/24/2024 9:55 AM CDT Pulse 67 01/24/2024 9:55 AM CDT Temperature 36.5 ??C (97.7 ??F) 05/13/2022 8:14 AM CD T Respiratory Rate 18 05/13/2022 8:14 AM CDT Oxygen Saturation 97% 01/24/2024 9:55 AM CDT Inhaled Oxygen Concentration - - Weight 80.7 kg (178 lb) 01/24/2024 9:55 AM CDT Height 165.1 cm (5' 5 ) 01/24/2024 9:55 AM CDT Body Mass Index 29.62 01/24/2024 9:55 AM CDT Plan of Treatment Not on file Procedures Procedure Name Priority Date/Time Associated Diagnosis Comments POCT LIPID PANEL Routine 01/24/2024 9:54 AM CDT Lipid screening COMPREHENSIVE METABOLIC PANEL Routine 03/17/2023 8:46 AM CDT Abnormal echocardiogram Murmur, heart from Last 3 Months or Most Recently Relevant to Health Maintenance Results * POCT lipid panel (01/24/2024 9:54 AM CDT) Cholesterol, POC 111 mg/dL HDL, POC 42 mg/dL Triglycerides, POC 71 mg/dL LDL Cholesterol POC 54 mg/dL Chol/HDL Ratio, POC 1.3 Non-HDL Cholesterol, POC 69 mg/dL Cholesterol Total, POC 111 mg/dL Capillary blood 01/24/2024 9 :54 AM CDT Jovanna Barragan NP POINT OF CARE TEST ORDERA BLES Final Result * (ABNORMAL) Comprehensive metabolic panel (03/17/2023 8:46 AM CDT) Glucose 183(H) 65 - 99 mg/dL [facility] Comment: ? Fasting reference interval For someone without known diabetes, a glucose value >125 mg/dL indicates that they may have diabetes and this should be confirmed with a follow-up test. BUN 20 7 - 25 mg/dL [facility] Creatinine 0.94 0.60 - 1.00 mg/dL [facility] eGFR 63 > OR = 60 mL/min/1.7 3m2 [facility] BUN/creat ratio SEE NOTE: 6 - 22 (calc) [facility] Comment: ?? Not Reported: BUN and Creatinine are within ?? reference range. ? Sodium 138 135 - 146 mmol/L [facility] Potassium, pl 4.2 3.5 - 5.3 mmol/L [facility] Chloride 102 98 - 110 mmol/L [facility] CO2 24 20 - 32 mmol/L [facility] Calcium 9.1 8.6 - 10.4 mg/dL [facility] Protein, sr 6.8 6.1 - 8.1 g/dL [facility] Albumin 4.3 3.6 - 5.1 g/dL [facility] GLOBULIN 2.5 1.9 - 3.7 g/dL (calc) [facility] Alb/glob ratio 1.7 1.0 - 2.5 (calc) [facility] Bilirubin, total 0.6 0.2 - 1.2 mg/dL [facility] Alk phos 50 37 - 153 U/L [facility] AST 19 10 - 35 U/L [facility] ALT (SGPT) 12 6 - 29 U/L [facility] Blood 03/17/2023 8:46 AM CDT 03/17/2023 8:50 AM CDT us Luz Maradiaga MD LAB BLOOD ORDERABLES Final Result [facility] [id number] [place] [address] from Last 3 Months or Most Recently Relevant to Health Maintenance Insurance IDPA [facility] Member Subscriber Plan / Payer ( fective 2016-Present) Name:ADINA RUSSELL Cheryl Relation to Subscriber:Self Name:Adnia Russell Payer ID:[id number] (NAIC) Type:MEDICARE RISK OTHER Address: [address] [facility] Care Teams Clinical Investigator Relationship Specialty Start Date End Date Irene Hidalgo MD [address] [facility] [address] [place] [address] PCP - General 10/08/16
--- OUTSIDE RECORDS SUMMARY | 2024-08-13 10:57 | XMS_ITS | Clinical Summary ---
Author Organization [facility] Address [address] [place] [address] Care Team Providers Care Advertising Dispatch Clerk Name Role Phone Irene Hidalgo MD Primary [...] mg tabletIndications:Pu re hypercholesterolemia ,Coronary arteriosclerosis in [place] artery Take 1 tablet (40 mg total) [...] (04/23/2022): Added automatically from request for surgery [id number] Hyperlipidemia associated with type 2 diabetes m loriitus 12/28/2021 CKD stage 2 due to type 2 diabetes mellitus ([facility]) 12/28/2021 Nonspecific abnormal results of function study o f kidney 02/28/2021 Persistent proteinuria 02/28/2021 Bilateral carotid bruits 12/17/2020 Muscle cramps 12/17/2020 Hypomagnesemia 12/17/2020 Vitamin D deficiency 12/26/2019 PAC (premature atrial contraction) 09/05/2017 History of coronary artery bypass surgery 2016 Overview (12/03/2016): Hx of CABG Coronary arteriosclerosis in [place] artery 09/16 Overview (12/03/2016): Coronary artery disease involving [place] coronary artery of [place] heart without angina pectoris Presence of aortocoronary [...] 07/14/2016 03/02/2017 Overview (10/14/2016): Abnormal stress test Surgical History Surgery Date Site/Laterality Comments CORONARY ARTERY BYPASS GRAFT 07/11/2016 - 07/10/2017 PARATHYROIDECTOMY Medical History Medical History Date Comments Diabetes mellitus (HCC) Diabetes mellitus Disorder of parathyroid gland (HCC) Parathyroid disease Hypertension Hypertension Hx Other Medical History of para thyroidectomy Type 2 diabetes mellitus (HCC) Arthritis Sciatic nerve pain Hx of CABG triple bypass in 2017 Cancer (CMS/HCC) (HCC) 04/2022 Cataract Family History Medical History Relation Name Comments Heart attack Father Ray Heart disease Father Ray Cardiovascular disease; Cause of : Cardiovascular disease Diabetes Mother Sherrie Early Mother Sherrie Heart disease Mother Sherrie Cardiovascular disease; Cause of : Cardiovascular disease Hypertension Mother Sherrie Kidney disease Mother Sherrie Diabetes Other 1 Family history of Diabetes mellitus; Hypertension Other 2 Family history of Hypertension; Hyperlipidemia Other 3 Family histor y of Hyperlipidemia; Cancer Sister 3 Raquel Other Sister 3 Raquel Alive and well; Breast cancer Sister 4 Cancer, breast ; Cause of : Cancer, breast Relation Name Status Comments Father Jassi (Age 69) Mother Sherrie (Age 55) Other 1 Other 2 Other 3 Sister 1 Alive Sister 2 (Age 72) Sister 3 Raquel Sister 4 Social History Tobacco Use Types Packs/Day Years [...] on file 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 Gender Identity Not on file Sexual Orientation Not on file Obstetrics History Last Filed Vital Signs Vital Sign Reading [...] 01/24/2024 9:55 AM CDT Plan of Treatment Health Maintenance Due Date Last Done Comments Albumin Creatinine Ratio, Urine 1946 Depression Screening 1946 Fall Risk Assessment 1946 Hemoglobin A1C 1946 Hepatitis C Screening 1946 Osteoporosis Screening-Bone Density Scan 1946 Dilated Eye Exam 1946 Foot Exam 1946 DTaP/Tdap/Td Vaccine (1 - Tdap) 1957 Hepatitis B Screening 1964 Zoster Vaccine (1 of 2) 1996 Well Visit 65+ 09/25/2011 Pneumococcal vaccine 65+ (2 of 2 - PPSV23 or PCV20) 05/06/2020 03/11/2020 Influenza Vaccine (#1) 2024 2, 04/24/2021, 04/02/2018, Additional history exists eGFR 03/17/2024 03/17/2023 Lipid Panel 01/23/2025 01/24/2024, 07/0 09/2022, 12/28/2021, Additional history exists Procedures Procedure Name Priority Date/Time Associated Diagnosis [...] CDT) Glucose 183(H) 65 - 99 mg/dL [facility] Comment: ? Fasting reference interval For someone without known diabetes, a glucose value >125 mg/dL indicates that they may have diabetes and this should be confirmed with a follow-up test. BUN 20 7 - 25 mg/dL [facility] Creatinine 0.94 0.60 - 1.00 mg/dL [facility] eGFR 63 > OR = 60 mL/min/1.7 3m2 [facility] BUN/creat ratio SEE NOTE: 6 - 22 (calc) [facility] Comment: ?? Not Reported: BUN and Creatinine are within ?? reference range. ? Sodium 138 135 - 146 mmol/L [facility] Potassium, pl 4.2 3.5 - 5.3 mmol/L [facility] Chloride 102 98 - 110 mmol/L [facility] CO2 24 20 - 32 mmol/L [facility] Calcium 9.1 8.6 - 10.4 mg/dL [facility] Protein, sr 6.8 6.1 - 8.1 g/dL [facility] Albumin 4.3 3.6 - 5.1 g/dL [facility] GLOBULIN 2.5 1.9 - 3.7 g/dL (calc) [facility] Alb/glob ratio 1.7 1.0 - 2.5 (calc) [facility] Bilirubin, total 0.6 0.2 - 1.2 mg/dL [facility] Alk phos 50 37 - 153 U/L [facility] AST 19 10 - 35 U/L [facility] ALT (SGPT) 12 6 - 29 U/L [facility] Blood 03/17/2023 8:46 AM CDT 03/17/2023 8:50 AM CDT Luz Maradiaga MD LAB BLOOD ORDERABLES Final Result [facility] [address] [place] [address] from Last 3 Months or Most Recently Relevant to Health Maintenance Insurance IDPA [facility] Member Subscriber Plan / Payer ( fective 2016-Present) Name:ADINA RUSSELL Relation to Subscriber:Self Name:Adina Russell Payer ID:[id number] (NAIC) Type:MEDICARE RISK OTHER Address: [address] [facility] Care Teams Advertising Dispatch Clerk Relationship Specialty Start Date End Date Irene Hidalgo MD [address] [facility] [address] [place] [address] PCP - General 10/08/16
--- OUTSIDE RECORDS SUMMARY | 2024-08-13 10:57 | XMS_ITS | Clinical Summary ---
Author Organization [facility] Address [address] [place] [address] Phone Care Team Providers Care Clothing And Textiles Teacher Name Role Phone Irene Hidalgo MD Primary Care Provider [phone] Allergies No known active allergies Medications Medication Sig Dispensed Refills Start Date End Date Status aspirin 81 MG chewable tablet 81 mg 07/14/2016 Active atorvastatin (LIPITOR) 40 MG tablet Take 40 mg by mouth daily 12/26/2019 Active carvedilol (COREG) 25 MG tablet Take 25 mg by mouth every 12 (twelve) hours 01/14/2021 Active cholecalciferol (VITAMIN D-3) 25 MCG (1000 UT) tablet take once daily 11/19/2016 Act leonrado clobetasol (TEMOVATE) 0.05 % cream APPLY TOPICALLY EVERY MORNING AND EVENING 01/05/2021 Active Diclofenac Sodium 1 % gel APPLY 4 GRAMS TO SINGLE KNEE, ANKLE, FOOT (SOLE, TOES, TOP OF FOOT) 4 TIMES A DAY 02/11/2021 Active glimepiride (AMARYL) 4 MG tablet Take 4 mg by mouth 1 (one) time each day in the morning 02/04/2021 Active isosorbide mononitrate (IMDUR) 30 MG 24 hr tablet Take 30 mg by mouth 2 times daily Active magnesium oxide (MAG-OX) 400 (241.3 Mg) MG tablet TAKE 1 TABLET BY MOUTH EVERY DAY NEEDED FOR MUSCLE CRAMPS 01/23/2021 Active Blood Glucose Monitoring Suppl (Contour Next Monitor) w/Device kit USE TO TEST BLOOD SUGARS 2 TIMES DAILY 08/17/2021 Active Contour Next Test test strip USE TO CHECK GLUCOSE TWICE A DAY 08/03/2021 Active tiZANidine (ZANAFLEX) 2 MG tablet TAKE 1 TABLET BY MOUTH 3 TIMES A DAY NEEDED FOR MUSCLE SPASTICITY 06/23/2021 Active metFORMIN (GLUCOPHAGE) 1000 MG tablet Take 1,000 mg by mouth 2 (two) times a day 12/01/2021 Active Tradjenta 5 MG tablet 12/28/2021 Active amLODIPine (NORVASC) 10 MG tablet Take 10 mg by mouth 1 (one) time each day 05/05/2022 Active losartan (COZAAR) 50 MG tablet Take 50 mg by mouth in the morning and 50 mg before bedtime. 05/05/2022 Active hydroCHLOROthiazide (HYDRODIURIL) 25 MG tablet Take 1 tablet (25 mg total) by mouth 1 (one) time each day 30 tablet 11 06/30/2022 Active Active Problems Problem Noted Date Diagnosed Date Nonspecific abnormal results of function study o f kidney 02/28/2021 Persistent proteinuria 02/28/2021 Carotid bruit 12/17/2020 Vitamin D deficiency 12/26/2019 Coronary arteriosclerosis 09/16/2016 Overview (02/28/2021): Coronary artery disease involving [place] coronary artery of [place] heart without angina pectoris History of coronary artery bypass grafting 09/16 Overview (02/28/2021): Hx of CABG Hypertensive disorder 07/14/2016 Overview (02/28/2021): Hypertension, essential Dyslipidemia 07/14/2016 Overview (02/28/2021): Hyperlipidemia, unspecified Type 2 diabetes mellitus 07/14/2016 Overview (02/28/2021): Type 2 diabetes mellitus with hyperglycemia, without long-term current use of insulin Immunizations Name Administration Dates Next Due Influenza TIV (IM) 04/24/2022,04/24/2021 Pneumococcal Conjugate 03/11/2020 Family History Medical History Relation Comments Kidney disease Mother Relation Status Comments Mother Social History Tobacco Use Types Packs/Day Years Used Date Smoking Tobacco: Former Smokeless Tobacco: Never Alcohol Use Standard Drinks/Week Comments Not Currently 0 (1 standard drink = 0.6 oz pur e alcohol) Sex and Gender Information Value Date Recorded Sex Assigned at Not on file Gender Identity Not on file Sexual Orientation Not on file Last Filed Vital Signs Vital Sign Reading Time Taken Comments Blood Pressure 146/70 06/30/2022 10:05 AM SEEDLING SORTER Pulse 60 06/30/2022 10:05 AM SEEDLING SORTER Temperature 35.2 ??C (95.4 ??F) 06/30/2022 10:[address] Respiratory Rate - - Oxygen Saturation - - Inhaled Oxygen Concentration - - Weight 87.1 kg (192 lb) 06/30/2022 10:05 AM SEEDLING SORTER Height 165.1 cm (5' 5 ) 06/30/2022 10:05 AM SEEDLING SORTER Body Mass Index 31.95 06/30/2022 10:05 AM SEEDLING SORTER Plan of Treatment Health Maintenance Due Date Last Done Comments Pneumococcal PPSV23/PCV13 65 + Years / High and Highest Risk (1 of 4 - PCV) 1952 Diabetic Foot Exam 1956 Ophthalmology Exam 1956 Influenza Vaccine (#1) 2024 04/24/2022, 2020 Care Teams Clothing And Textiles Teacher Relationship Specialty Start Date End Date Irene Hidalgo MD [address] [facility] [address] [place] [address] PCP - General Internal Medicine 01/13/21
--- OUTSIDE RECORDS SUMMARY | 2024-08-13 10:57 | XMS_ITS | Encounter Summary ---
Author Organization [facility] Address [address] [facility] [address] [place] [address] Care Team Providers Care Handle And Vent Machine Operator Name Role Phone Irene Hidalgo MD Primary Care Provider Irene Hidalgo MD Primary Care Provider Encounter Details Date Type Department Care Team (Late st Contact Info) Description 08/10/2016 Orders Only [facility] ProviderMino MD [address] [place] [id number] Social History Tobacco Use Types Packs/Day Years Used Date Smoking Tobacco: Never Alcohol Use Standard Drinks/Week Comments No 0 (1 standard drink = 0.6 oz pur e alcohol) Comments Unknown Sex and Gender Information Value Date Recorded Sex Assigned at Not on file 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 Historical Provider [facility] FORD Final Result documented in this encounter Visit Diagnoses Not on filedocumented in this encounter Care Teams Handle And Vent Machine Operator Relationship Specialty Start Date End Date Irene Hidalgo MD [address] [place] [address] PCP - General 10/08/16 Irene Hidalgo MD [address] [facility] [address] [place] [address] PCP - General 07/14/16 10/07/16 documented as of this encounter
--- OUTSIDE RECORDS SUMMARY | 2024-08-13 13:12 | XMS_ITS | Clinical Summary ---
Author Organization [facility] Address [address] [place] [address] Care Team Providers Care Circuit Recorder Name Role Phone Irene Hidalgo MD Primary [...] mg tabletIndications:Pu re hypercholesterolemia ,Coronary arteriosclerosis in [place] artery Take 1 tablet (40 mg total) [...] (04/23/2022): Added automatically from request for surgery [id number] Hyperlipidemia associated with type 2 diabetes m loriitus 12/28/2021 CKD stage 2 due to type 2 diabetes mellitus ([facility]) 12/28/2021 Nonspecific abnormal results of function study o f kidney 02/28/2021 Persistent proteinuria 02/28/2021 Bilateral carotid bruits 12/17/2020 Muscle cramps 12/17/2020 Hypomagnesemia 12/17/2020 Vitamin D deficiency 12/26/2019 PAC (premature atrial contraction) 09/05/2017 History of coronary artery bypass surgery 2016 Overview (12/03/2016): Hx of CABG Coronary arteriosclerosis in [place] artery 09/16 Overview (12/03/2016): Coronary artery disease involving [place] coronary artery of [place] heart without angina pectoris Presence of aortocoronary [...] on file Legal 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 Fasting reference interval For someone without known diabetes, a glucose value >125 mg/dL indicates that they may have diabetes and this should be confirmed with a follow-up test. BUN 20 7 - 25 mg/dL Cristopher Clifton Creatinine 0.94 0.60 - 1.00 mg/dL Living Independently GroupYuliya Clifton eGFR 63 > OR = 60 mL/min/1.7 3m2 Living Independently GroupMargaretJoellen Clifton BUN/creat ratio SEE NOTE: 6 - [...] LAB BLOOD ORDERABLES Final Result CRISTOPHER Clifton [address] [place] [address] from Last 3 Months or Most Recently Relevant to Health Maintenance Insurance IDPA [facility] Member Subscriber Plan / Payer ( fective 2016-Present) Name:ADINA RUSSELL Relation to Subscriber:Self Name:Adina Russell Payer ID:[id number] (NAIC) Type:MEDICARE RISK OTHER Address: [address] [facility] Care Teams Circuit Recorder Relationship Specialty Start Date End Date Irene Hidalgo MD [address] [facility] [address] [place] [address] PCP - General 10/08/16
--- OUTSIDE RECORDS SUMMARY | 2024-08-13 13:12 | XMS_ITS | Encounter Summary ---
Author Organization [facility] Address [address] [facility] [address] [place] [address] Care Team Providers Care Crusher Dry Ground Mica Name Role Phone Irene Hidalgo MD Primary Care Provider Irene Hidalgo MD Primary Care Provider Encounter Details Date Type Department Care Team (Late st Contact Info) Description 08/10/2016 Orders Only [facility] ProviderMino MD [address] [place] [id number] Social History Tobacco Use Types Packs/Day Years Used Date Smoking Tobacco: Never Alcohol Use Standard Drinks/Week Comments No 0 (1 standard drink = 0.6 oz pur e alcohol) Comments Unknown Sex and Gender Information Value Date Recorded Sex Assigned at Not on file 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
--- OUTSIDE RECORDS SUMMARY | 2024-08-13 13:12 | XMS_ITS | Clinical Summary ---
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 ENGINE 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 Pulse 60 06/30/2022 10:05 AM ENGINE 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 Temperature 35.2 ??C (95.4 ??F) 06/30/2022 10:[address] Respiratory Rate - - Oxygen Saturation - - Inhaled Oxygen Concentration - - Weight 87.1 kg (192 lb) 06/30/2022 10:05 AM ENGINE 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 Height 165.1 cm (5' 5 ) 06/30/2022 10:05 AM ENGINE 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 Body Mass Index 31.95 06/30/2022 10:05 AM ENGINE 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 Plan of Treatment Health Maintenance Due Date Last Done Comments Pneumococcal PPSV23/PCV13 65 + Years / High and Highest Risk (1 of 4 - PCV) 1952 Diabetic Foot Exam 1956 Ophthalmology Exam 1956 Influenza Vaccine (#1) 2024 04/24/2022, 2020 Care Teams Back Padder Relationship Specialty Start Date End Date Irene Hidalgo MD [address] [facility] [address] [place] [address] PCP - General Internal Medicine 01/13/21
--- OUTSIDE RECORDS SUMMARY | 2024-08-13 13:12 | XMS_ITS | Referral Summary ---
Author Organization [facility] Address [address] [place] [address] Care Team Providers Care Machine Farmworker Name Role Phone Irene Hidalgo MD Primary [...] mg tabletIndications:Pu re hypercholesterolemia ,Coronary arteriosclerosis in [place] artery Take 1 tablet (40 mg total) [...] (04/23/2022): Added automatically from request for surgery [id number] Hyperlipidemia associated with type 2 diabetes m loriitus 12/28/2021 CKD stage 2 due to type 2 diabetes mellitus ([facility]) 12/28/2021 Nonspecific abnormal results of function study o f kidney 02/28/2021 Persistent proteinuria 02/28/2021 Bilateral carotid bruits 12/17/2020 Muscle cramps 12/17/2020 Hypomagnesemia 12/17/2020 Vitamin D deficiency 12/26/2019 PAC (premature atrial contraction) 09/05/2017 History of coronary artery bypass surgery 2016 Overview (12/03/2016): Hx of CABG Coronary arteriosclerosis in [place] artery 09/16 Overview (12/03/2016): Coronary artery disease involving [place] coronary artery of [place] heart without angina pectoris Presence of aortocoronary [...] on file Legal Sex Female 8:53 AM LMSW Gender Identity Not on file Sexual Orientation [...] CDT) Glucose 183(H) 65 - 99 mg/dL MEEPYuliya Clifton Comment: ? Fasting reference interval For someone without known diabetes, a glucose value >125 mg/dL indicates that they may have diabetes and this should be confirmed with a follow-up test. BUN 20 7 - 25 mg/dL MEEPYuliya Clifton Creatinine 0.94 0.60 - 1.00 mg/dL [...] LAB BLOOD ORDERABLES Final Result DESI Clifton [address] [place] [address] from Last 3 Months or Most Recently Relevant to Health Maintenance Insurance IDPA [facility] Member Subscriber Plan / Payer ( fective 2016-Present) Name:ADINA RUSSELL Cheryl Relation to Subscriber:Self Name:Adina Russell Payer ID:[id number] (NAIC) Type:MEDICARE RISK OTHER Address: [address] [facility] Care Teams Machine Farmworker Relationship Specialty Start Date End Date Irene Hidalgo MD [address] [facility] 120 [place] [address] PCP - General 10/08/16
[2024-08-13] MEDS: KETOROLAC 30 MG/ML VIAL (*BKC) IM (13:46)
--- NOTE | 2024-08-13 13:47 | ED_ITS ---
HPI - Extremity Injury (Lower) General Chief Complaint: Extremity Injury, Lower Stated Complaint: right back/buttocks/leg pain Time Seen by Provider: 08/13/24 12:09 History of Present Illness HPI Narrative: Patient is a 78-year-old female who presents ER with right low back pain at the buttock region. Occasional radiation into anterior right leg. No numbness or tingling of the extremity or the groin. No urinary or stool difficulties. Denies trauma to incite the pain. Has not taken pain mediation. Reports her leg gave out this morning because of pain and she fell onto her buttock and then struck her head on the bathtub. No LOC. She does take ASA. No LEDESMA/vision changes/confusion. Related Data Home Medications ?Medication ?Instructions ?Recorded ?Confirmed ?Last Taken ?Type aspirin 81 mg tablet,delayed 81 mg PO DAILY 06/12/19 04/12/24 03/22/23 History release (Adult Low Dose Aspirin) Allergies Allergy/AdvReac Type Severity Reaction Status Date / Time Usbooev-TNP-MoM Reductase Allergy Unknown unknown Verified 04/12/24 09:01 Inhibitor (Lkyewsx-Grk-Ffn Reductase Inhibitor) tramadol AdvReac Unknown Other Verified 04/12/24 09:01 Review of Systems Review of Systems: All systems reviewed & are unremarkable except as noted in HPI and below Constitutional: Constitutional: Reports no additional constitutional complaints ENT: Reports system reviewed and no additional complaints, except as documented Cardiovascular: Cardiovascular: Reports no additional cardiovascular complaints Respiratory: Respiratory: Reports no additional respiratory complaints Genitourinary: Genitourinary: Reports no additional female genitourinary complaints Musculoskeletal: Musculoskeletal: Reports no additional musculoskeletal complaints Neurologic: Reports system reviewed and no additional complaints, except as documented [facility] Past Medical History Medical History Abnormal stress test Anemia Aortic stenosis B12 deficiency Benign essential hypertension CAD (coronary artery disease), [place] coronary artery Chronic kidney disease, stage 3 (moderate) Chronic kidney disease, stage 3a Chronic kidney disease, stage II (mild) Controlled type 2 diabetes mellitus with stage 3 chronic kidney disease Diabetic neuropathy associated with type 2 diabetes mellitus DM neuropathy, type II diabetes mellitus DM renal manif type II DM w/o complication type II Dysuria MALIA (generalized anxiety disorder) MALIA (generalized anxiety disorder) History of tobacco use HLD (hyperlipidemia) Hypertension associated with stage 3 chronic kidney disease due to type 2 diabetes mellitus Hypomagnesemia Knee pain Left knee pain Living will, counseling/discussion Magnesium deficiency Mixed hyperlipidemia Mixed hyperlipidemia Muscle ache Neuropathy involving both lower extremities PAC (premature atrial contraction) Postmenopausal Psoriasis Psoriasis Right hip pain Sacroiliac joint pain Sciatic leg pain Screening for breast cancer Skin lesion Stage 3b chronic kidney disease Toenail fungus Trochanteric bursitis, left hip Type 2 diabetes mellitus with diabetic chronic kidney disease Urinary retention with incomplete bladder emptying Vitamin D deficiency Surgical History Surgical History H/O parathyroidectomy History of parathyroidectomy S/P CABG x 3 JOHNSON to the Left anterior descending, free radial artery graft to the OM 1, SVG to the RCA, Dr. Zelyaa, at [facility] on 08/24/2016. Family History Family History Mother Family history of diabetes mellitus in first degree relative Family history of heart disease in male family member before age 55 Hypertension Family history of type 2 diabetes mellitus Patient's mother is Father Family history of heart disease in male family member before age 55 Sibling Acute myocardial infarction, Onset Age: 68 Social History Social History Social History: Smoking packs per day: 0.5 Smoking cigarettes per day: 10.0 Years smoked: 10 Smoking pack-years: 5.00 Smoking status: Former smoker Tobacco type: cigarettes Second hand tobacco smoke exposure: No Smoking end date: 07/11/1968 Alcohol intake: never Substance use: never Substance use type: does not use Do You Feel Safe in your Home?: Yes Lack of Transportation: No Lack of Food: Never True Current Housing: I Have Housing Concerned About Future Housing: No Difficulty Paying Gas/Electric Bills: No Difficulty Paying for Meds: No Currently Unemployed: YES Education: Decline to Answer Difficulty w/ Childcare or Family Care: No Living arrangements: with family Occupation/Education: retired Gender identity (if verbalized by the patient): Female Sexual Orientation (if Verbalized by the Patient): Straight or Heterosexual Spiritual care concerns: No Exam Narrative: GENERAL: Well-appearing, well-nourished, and in no acute distress. HEAD: Normocephalic, atraumatic. ENT: Mucous membranes moist. CHEST: Clear to auscultation. No respiratory distress. HEART: Regular rate and rhythm. Normal peripheral pulses. BACK: No reproducible midline tenderness at T/L-spine. There is tenderness at the SI region and the right buttock area that reproduces patient's pain. No left-sided discomfort. EXTREMITIES: Normal range of motion. No edema. 5/5 strength in the right and left lower extremities at the hip/knee/ankle SKIN: Warm, dry, no rash. NEURO: Alert and oriented x3. PSYCH: Normal mood and affect. Course Course Emergency Course: Discomfort improving with Toradol. Discussed imaging results. Old fracture noted in the location different from where her discomfort is located. Discharge home with anti-inflammatories muscle relaxers. Vital Signs Vital signs: Vital Signs Temperature 97.3 F L 08/13/24 10:19 Pulse Rate 67 08/13/24 10:19 Respiratory Rate 18 08/13/24 10:19 Blood Pressure 140/66 08/13/24 10:19 Pulse Oximetry 100 08/13/24 10:19 Oxygen Delivery Room Air 08/13/24 10:19 Temperature 97.3 F L 08/13/24 10:19 Pulse Rate 67 08/13/24 10:19 Respiratory Rate 18 08/13/24 10:19 Blood Pressure 140/66 08/13/24 10:19 Pulse Oximetry 100 08/13/24 10:19 Oxygen Delivery Room Air 08/13/24 10:19 MDM - Extremity Injury (Lower) Imaging Data My impression: ITS Impressions Lumbar Spine X-Ray 08/13/24 12:57 IMPRESSION: No acute compression fracture within the lumbar spine. Severe degenerative disease, largely unchanged from 2022 examination. Compression of the superior endplate of T11 and possibly T10 are identified, age indeterminate and not completely included on the previous study. Head CT 08/13/24 13:10 Impression: No acute intracranial hemorrhage or suspicious mass effect. Discharge Plan Discharge Clinical Impression: Sciatica Patient Disposition: Home, Self-Care Condition: Stable Instructions: Sciatica (ED) Additional Instructions: Please return to the emergency department if you develop severe pain that is not controlled by pain medications or if you are unable to walk because of pain or weakness. Return to the emergency department immediately if you develop fevers, loss of bowel or bladder control (dribbling of urine or having accidents you wouldn't normally have), inability to urinate, numbness of your genital or anal area, or weakness/numbness of your legs or arms as these could all be signs of a serious medical emergency. Patient Language: Syriac Prescriptions: New tizanidine 2 mg capsule 2 mg PO Q8H PRN (Reason: muscle spasticity) Qty: 14 0RF naproxen 250 mg tablet 250 mg PO BID Qty: 14 0RF No Action diclofenac sodium 1 % gel 4 g topical QID Qty: 100 3RF Rx Instructions: apply to single knee, ankle, foot; for foot includes sole/toes/top of foot lidocaine 5 % ointment 1 applic topical DAILY PRN (Reason: pain) Qty: 50 0RF gabapentin 100 mg capsule 100 mg PO QHS Qty: 30 0RF aspirin [Adult Low Dose Aspirin] 81 mg tablet,delayed release (DR/EC) 81 mg PO DAILY atorvastatin 40 mg tablet See Rx Instructions .ROUTE .COMPLEX Qty: 90 4RF Dose Instruction: TAKE 1 TABLET BY MOUTH EVERY DAY Rx Instructions: TAKE 1 TABLET BY MOUTH EVERY DAY azelastine 137 mcg (0.1 %) aerosol,spray See Rx Instructions .ROUTE .COMPLEX Qty: 30 0RF Dose Instruction: 137 MCG (0.137 ML) INTRANASALLY EVERY 12 HOURS ADMINISTER INTO EACH NOSTRIL Rx Instructions: 137 MCG (0.137 ML) INTRANASALLY EVERY 12 HOURS ADMINISTER INTO EACH NOSTRIL isosorbide mononitrate 30 mg tablet extended release 24 hr See Rx Instructions .ROUTE .COMPLEX Qty: 180 1RF Dose Instruction: TAKE 1 TABLET BY MOUTH TWICE A DAY Rx Instructions: TAKE 1 TABLET BY MOUTH TWICE A DAY carvedilol 25 mg tablet See Rx Instructions .ROUTE .COMPLEX Qty: 180 1RF Dose Instruction: TAKE 1 TABLET BY MOUTH TWICE A DAY Rx Instructions: TAKE 1 TABLET BY MOUTH TWICE A DAY losartan 50 mg tablet See Rx Instructions .ROUTE .COMPLEX Qty: 180 2RF Dose Instruction: TAKE 1 TABLET BY MOUTH TWICE A DAY Rx Instructions: TAKE 1 TABLET BY MOUTH TWICE A DAY triamterene-hydrochlorothiazid 37.5-25 mg capsule 1 cap PO DAILY Qty: 90 3RF glimepiride 4 mg tablet See Rx Instructions .ROUTE .COMPLEX Qty: 90 3RF Dose Instruction: 4 MG ORALLY EVERY MORNING Rx Instructions: 4 MG ORALLY EVERY MORNING and 2 mg (1/2 tablets) EVERY EVENING fluticasone propionate 50 mcg/actuation spray,suspension 1 spray intranasal DAILY Qty: 48 2RF Rx Instructions: administer into each nostril (DME) blood-glucose meter [Contour Next EZ Meter] [facility] See Rx Instructions .ROUTE .COMPLEX Qty: 1 0RF Dose Instruction: DIRECTED TO CHECK GLUCOSE TWICE DAILY Rx Instructions: DIRECTED TO CHECK GLUCOSE TWICE DAILY (DME) Contour Next Test Strips Strip See Rx Instructions .ROUTE .MEDSUPPLY Qty: 300 2RF Rx Instructions: to check glucose BID dapagliflozin propanediol [Farxiga] 10 mg tablet 10 mg PO DAILY Qty: 90 1RF clobetasol 0.05 % cream See Rx Instructions .ROUTE .COMPLEX Qty: 45 0RF Dose Instruction: APPLY TOPICALLY EVERY DAY IN THE MORNING AND IN THE EVENING NEEDED FOR PSORIASIS Rx Instructions: APPLY TOPICALLY EVERY DAY IN THE MORNING AND IN THE EVENING NEEDED FOR PSORIASIS Janumet 50-1,000 mg tablet See Rx Instructions .ROUTE .COMPLEX Qty: 180 1RF Dose Instruction: TAKE 1 TABLET BY MOUTH TWICE A DAY Rx Instructions: TAKE 1 TABLET BY MOUTH TWICE A DAY Follow-up/Referrals: Dalia Daly, PAMargaretC [Primary Care Provider] - 1 Week
== END 2024-08-13 15:23 | disposition home or self-care (01) ==
PROVIDERS: Emergency Provider Emergency Medicine; PCP Physician Assistant
DX: M54.41 Lumbago with sciatica, right side (principal); I25.10 Atherosclerotic heart disease of native coronary artery without angina pectoris; E11.22 Type 2 diabetes mellitus with diabetic chronic kidney disease; I12.9 Hypertensive chronic kidney disease with stage 1 through stage 4 chronic kidney disease, or unspecified chronic kidney disease; N18.30 Chronic kidney disease, stage 3 unspecified; E11.40 Type 2 diabetes mellitus with diabetic neuropathy, unspecified; E78.2 Mixed hyperlipidemia; E55.9 Vitamin D deficiency, unspecified; E53.8 Deficiency of other specified B group vitamins; L40.9 Psoriasis, unspecified; Z95.1 Presence of aortocoronary bypass graft; Z87.891 Personal history of nicotine dependence; Z90.89 Acquired absence of other organs; Z79.82 Long term (current) use of aspirin; Z79.84 Long term (current) use of oral hypoglycemic drugs; Z79.899 Other long term (current) drug therapy; M47.816 Spondylosis without myelopathy or radiculopathy, lumbar region
CPT/HCPCS: 70450; 72110; 96372; 99284; J1885

== ENCOUNTER 2024-08-24 12:59 | Emergency (ER) | payer OTHER, SELFPAY ==
[2024-08-24 13:04] VITALS: BP 153/70; PULSE 75; RESP 16; TEMP 36.6; O2SAT 100
--- OUTSIDE RECORDS SUMMARY | 2024-08-24 13:06 | XMS_ITS | Clinical Summary ---
Author Organization [facility] Address [address] [place] [address] Care Team Providers Care Building Stonecutter Name Role Phone Irene Hidalgo MD Primary [...] mg tabletIndications:Pu re hypercholesterolemia ,Coronary arteriosclerosis in [place] artery Take 1 tablet (40 mg total) [...] (04/23/2022): Added automatically from request for surgery [id number] Hyperlipidemia associated with type 2 diabetes m loriitus 12/28/2021 CKD stage 2 due to type 2 diabetes mellitus ([facility]) 12/28/2021 Nonspecific abnormal results of function study o f kidney 02/28/2021 Persistent proteinuria 02/28/2021 Bilateral carotid bruits 12/17/2020 Muscle cramps 12/17/2020 Hypomagnesemia 12/17/2020 Vitamin D deficiency 12/26/2019 PAC (premature atrial contraction) 09/05/2017 History of coronary artery bypass surgery 2016 Overview (12/03/2016): Hx of CABG Coronary arteriosclerosis in [place] artery 09/16 Overview (12/03/2016): Coronary artery disease involving [place] coronary artery of [place] heart without angina pectoris Presence of aortocoronary [...] on file 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 BUN 20 7 - 25 mg/dL misterbnbJoellen Clifton Creatinine 0.94 0.60 - 1.00 mg/dL [facility]-Joellen Clifton eGFR 63 > OR = 60 mL/min/1.7 3m2 [facility] Corporation[facility]uliya Clif[facility] BUN/creat ratio SEE NOTE: 6 - 22 (calc) [facility]-S carmela Clifton Comment: Not Reported: BUN and Creatinine are within reference range. Sodium 138 135 - 146 mmol/L [facility]S carmela Clifton Potassium, pl 4.2 3.5 - 5.3 [...] ratio 1.7 1.0 - 2.5 (calc) [facility] carmela Clifton Bilirubin, total 0.6 0.2 - 1.2 mg/dL [facility] carmela Clifton Alk phos 50 37 - 153 U/L [facility] carmela Clifton AST 19 10 - 35 U/L [facility]S carmela Clifton ALT (SGPT) 12 6 - 29 U/L [facility]-Joellen Clifton Blood 03/17/2023 8:46 AM CDT 03/17/2023 8:50 AM CDT us Luz Maradiaga MD LAB BLOOD ORDERABLES Final Result [facility] Desi [facility] [address] [address] [place] [address] from Last 3 Months or Most Recently Relevant to Health Maintenance Insurance IDPA [facility] ID[facility] Care Teams Building Stonecutter Relationship Specialty Start Date End Date Irene Hidalgo MD [address] [facility] [address] [place] [address] PCP - General 10/08/16
--- OUTSIDE RECORDS SUMMARY | 2024-08-24 13:06 | XMS_ITS | Referral Summary ---
Author Organization [facility] Address [address] [place] [address] Care Team Providers Care Account Consultant Name Role Phone Irene Hidalgo MD Primary [...] mg tabletIndications:Pu re hypercholesterolemia ,Coronary arteriosclerosis in [place] artery Take 1 tablet (40 mg total) [...] (04/23/2022): Added automatically from request for surgery [id number] Hyperlipidemia associated with type 2 diabetes m loriitus 12/28/2021 CKD stage 2 due to type 2 diabetes mellitus ([facility]) 12/28/2021 Nonspecific abnormal results of function study o f kidney 02/28/2021 Persistent proteinuria 02/28/2021 Bilateral carotid bruits 12/17/2020 Muscle cramps 12/17/2020 Hypomagnesemia 12/17/2020 Vitamin D deficiency 12/26/2019 PAC (premature atrial contraction) 09/05/2017 History of coronary artery bypass surgery 2016 Overview (12/03/2016): Hx of CABG Coronary arteriosclerosis in [place] artery 09/16 Overview (12/03/2016): Coronary artery disease involving [place] coronary artery of 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 BUN 20 7 - 25 mg/dL [facility] Creatinine 0.94 0.60 - 1.00 mg/dL [facility] eGFR 63 > OR = 60 mL/min/1.7 3m2 [facility] BUN/creat ratio SEE NOTE: 6 - 22 (calc) [facility] Comment: Not Reported: BUN and Creatinine are within reference range. Sodium 138 135 - 146 mmol/L [facility] Potassium, pl 4.2 3.5 - 5.3 mmol/L [facility] Chloride 102 98 - 110 mmol/L [facility] CO2 24 20 - 32 mmol/L [facility] Calcium 9.1 8.6 - 10.4 mg/dL [facility] Protein, sr 6.8 6.1 - 8.1 g/dL [facility] Albumin 4.3 3.6 - 5.1 g/dL [facility] GLOBULIN 2.5 1.9 - 3.7 g/dL (calc) [facility] Alb/glob ratio 1.7 1.0 - 2.5 (calc) [facility] Bilirubin, total 0.6 0.2 - 1.2 mg/dL [facility] Alk phos 50 37 - 153 U/L [facility] AST 19 10 - 35 U/L [facility] ALT (SGPT) 12 6 - 29 U/L [facility] Blood 03/17/2023 8:46 AM CDT 03/17/2023 8:50 AM CDT Luz Maradiaga MD LAB BLOOD ORDERABLES Final Result [facility] [address] [place] [address] from Last 3 Months or Most Recently Relevant to Health Maintenance Insurance IDPA [facility] Member Subscriber Plan / Payer ( fective 2016-Present) Name:ADINA RUSSELL Relation to Subscriber:Self Name:Adina Russell Payer ID:[id number] (NAIC) Type:MEDICARE RISK OTHER Address: [address] [facility] Care Teams Account Consultant Relationship Specialty Start Date End Date Irene Hidalgo MD [address] [facility] [address] [place] [address] PCP - General 10/08/16
--- OUTSIDE RECORDS SUMMARY | 2024-08-24 13:06 | XMS_ITS | Encounter Summary ---
Author Organization [facility] Address [address] [facility] [address] [place] [address] Care Team Providers Care Career Services Representative Name Role Phone Irene Hidalgo MD Primary Care Provider Irene Hidalgo MD Primary Care Provider Encounter Details Date Type Department Care Team (Late st Contact Info) Description 08/10/2016 Orders Only [facility] ProviderMino MD [address] [place] [id number] Social History Tobacco Use Types Packs/Day Years Used Date Smoking Tobacco: Never Alcohol Use Standard Drinks/Week Comments No 0 (1 standard drink = 0.6 oz pur e alcohol) Comments Unknown Sex and Gender Information Value Date Recorded Sex Assigned at Not on file 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
--- OUTSIDE RECORDS SUMMARY | 2024-08-24 13:06 | XMS_ITS | Clinical Summary ---
Author Organization [facility] Address [address] [place] [id number] Phone Care Team Providers Care Javascript Web Developer Name Role Phone Irene Hidalgo MD Primary Care Provider [phone] Allergies No known active allergies Medications Medication [...] 09/16/2016 Overview (02/28/2021): Coronary artery disease involving [facility] coronary artery of [place] heart without angina pectoris History of coronary [...] Comments Blood Pressure 146/70 06/30/2022 10:05 AM UX CONSULTANT Pulse 60 06/30/2022 10:05 AM UX CONSULTANT Temperature 35.2 C (95.4 F) 06/30/2022 10:05 AM UX CONSULTANT Respiratory Rate - - Oxygen Saturation - - Inhaled Oxygen Concentration - - Weight 87.1 kg (192 lb) 06/30/2022 10:05 AM UX CONSULTANT Height 165.1 cm (5' 5 ) 06/30/2022 10:05 AM UX CONSULTANT Body Mass Index 31.95 06/30/2022 10:05 AM UX CONSULTANT Plan of Treatment Health Maintenance Due Date Last Done Comments Pneumococcal PPSV23/PCV13 65 + Years / High and Highest Risk (1 of 4 - PCV) 1952 Diabetic Foot Exam 1956 Ophthalmology Exam 1956 Influenza Vaccine (#1) 2024 04/24/2022, 2020 Care Teams Javascript Web Developer Relationship Specialty Start Date End Date Irene Hidalgo MD [address] [facility] [address] [facility] [address] [place] [id number] PCP - General Internal Medicine 01/13/21
[2024-08-24 13:10] LABS: Glucose Point of Care 327 mg/dl (65-105)
--- NOTE | 2024-08-24 14:36 | ED.RECABL ---
HPI - Recheck/Abnormal Lab/Rx General Chief Complaint: Recheck/Abnormal Lab/Rx <Caitlin Chirinos PA-C - Last Filed: 08/24/24 14:39> Stated Complaint: blood sugar, sciatic nerve <Caitlin Chirinos PA-C - Last Filed: 08/24/24 14:39> Time Seen by Provider: 08/24/24 22:41 <Caitlin Chirinos PA-C - Last Filed: 08/24/24 14:39> Focused HPI: 78-year-old female presents to the ED for hyperglycemia. Patient was evaluated in our ED on 04/12/2025 for sciatica and low back pain and discharged home with tizanidine and naproxen. She followed up with her PCP and discontinue the tizanidine naproxen, started Celebrex and methocarbamol. Patient states those medications made lightheaded because her blood sugar increased to she discontinued them yesterday. She was told by her PCP to come into the ER given high blood sugars. She said her blood sugars been greater than 300 over the past week, normally it is around 240. She recently started long-acting insulin. GENERAL: Well-appearing, well-nourished, and in no acute distress. HEAD: Normocephalic, atraumatic. CHEST: Clear to auscultation. ?No respiratory distress. HEART: Regular rate and rhythm.? NEURO: ?Alert and oriented x3. Patient screened in triage and initial orders placed.? ?Additional care and disposition to be based upon?diagnostic testing and treatment. <Caitlin Chirinos PA-C - Last Filed: 08/24/24 14:39> History of Present Illness HPI narrative: per hpi <Yaneli Bridges MD - Last Filed: 08/25/24 01:44> Related Data Home Medications: Home Medications ?Medication ?Instructions ?Recorded ?Confirmed ?Last Taken ?Type aspirin 81 mg tablet,delayed 81 mg PO DAILY 06/12/19 08/15/24 03/22/23 History release (Adult Low Dose Aspirin) <Caitlin Chirinos PA-C - Last Filed: 08/24/24 14:39> Allergies/Adverse Reactions: Allergies Allergy/AdvReac Type Severity Reaction Status Date / Time Eciqewh-TNU-SnZ Reductase Allergy Unknown unknown Verified 08/15/24 13:32 Inhibitor (Mzwsvfn-Orx-Oee Reductase Inhibitor) tramadol AdvReac Unknown Other Verified 08/15/24 13:32 <Caitlin Chirinos PA-C - Last Filed: 08/24/24 14:39> Review of Systems Review of Systems: All systems reviewed & are unremarkable except as noted in HPI and below <Yaneli Bridges MD - Last Filed: 08/25/24 01:44> [facility] Past Medical History Medical History: Medical History Aortic stenosis Anemia Muscle ache Chronic kidney disease, stage 3a Knee pain Psoriasis Mixed hyperlipidemia MALIA (generalized anxiety disorder) Vitamin D deficiency DM renal manif type II Toenail fungus Right hip pain Postmenopausal PAC (premature atrial contraction) Neuropathy involving both lower extremities Magnesium deficiency Living will, counseling/discussion DM w/o complication type II DM neuropathy, type II diabetes mellitus Controlled type 2 diabetes mellitus with stage 3 chronic kidney disease Chronic kidney disease, stage II (mild) Benign essential hypertension B12 deficiency Abnormal stress test Urinary retention with incomplete bladder emptying Skin lesion HLD (hyperlipidemia) Hypertension associated with stage 3 chronic kidney disease due to type 2 diabetes mellitus Screening for breast cancer Sciatic leg pain Trochanteric bursitis, left hip Hypomagnesemia Stage 3b chronic kidney disease History of tobacco use Left knee pain Sacroiliac joint pain Dysuria Mixed hyperlipidemia MALIA (generalized anxiety disorder) Psoriasis CAD (coronary artery disease), [place] coronary artery Chronic kidney disease, stage 3 (moderate) Type 2 diabetes mellitus with diabetic chronic kidney disease Diabetic neuropathy associated with type 2 diabetes mellitus <Caitlin Chirinos PA-C - Last Filed: 08/24/24 14:39> Surgical History Surgical History: Surgical History History of parathyroidectomy H/O parathyroidectomy S/P CABG x 3 JOHNSON to the Left anterior descending, free radial artery graft to the OM 1, SVG to the RCA, Dr. Zelaya, at [facility] on 08/24/2016. <Caitlin Chirinos PA-C - Last Filed: 08/24/24 14:39> Family History Family History: Family History Mother Family history of diabetes mellitus in first degree relative Family history of heart disease in male family member before age 55 Hypertension Family history of type 2 diabetes mellitus Patient's mother is Father Family history of heart disease in male family member before age 55 Sibling Acute myocardial infarction, Onset Age: 68 <Caitlin Chirinos PA-C - Last Filed: 08/24/24 14:39> Social History Social History: Social History Social History: Smoking packs per day: 0.5 Smoking cigarettes per day: 10.0 Years smoked: 10 Smoking pack-years: 5.00 Smoking status: Former smoker Tobacco type: cigarettes Second hand tobacco smoke exposure: No Smoking end date: 07/11/1968 Alcohol intake: never Substance use: never Substance use type: does not use Do You Feel Safe in your Home?: Yes Lack of Transportation: No Lack of Food: Never True Current Housing: I Have Housing Concerned About Future Housing: No Difficulty Paying Gas/Electric Bills: No Difficulty Paying for Meds: No Currently Unemployed: YES Education: Decline to Answer Difficulty w/ Childcare or Family Care: No Living arrangements: with family Occupation/Education: retired Gender identity (if verbalized by the patient): Female Sexual Orientation (if Verbalized by the Patient): Straight or Heterosexual Spiritual care concerns: No <Caitlin Chirinos PA-C - Last Filed: 08/24/24 14:39> Exam Narrative: EXAMINATION OF ORGAN SYSTEMS/BODY AREAS: Constitutional: Vital signs per nursing GENERAL:[No acute distress, non-toxic appearing.] HEAD: Normal with no signs of head trauma. EYES: EOMI, conjunctiva normal ENT: Hearing grossly intact LUNGS: Nonlabored breathing. HEART: [Regular rate and rhythm] ABD: [Soft], [nontender to palpation] EXT: Normal range of motion SKIN: [No rashes or lesions.] NEURO: [Alert and oriented x 3. No gross focal sensory or strength deficits.] PSYCH: Normal affect <Yaneli Bridges MD - Last Filed: 08/25/24 01:44> Course Vital Signs Vital signs: Vital Signs Temperature 97.8 F 08/24/24 13:04 Pulse Rate 75 08/24/24 13:04 Respiratory Rate 16 08/24/24 13:04 Blood Pressure 153/70 H 08/24/24 13:04 Pulse Oximetry 100 08/24/24 13:04 Oxygen Delivery Room Air 08/24/24 13:04 Temperature 97.8 F 08/24/24 13:04 Pulse Rate 71 08/25/24 00:07 Respiratory Rate 16 08/25/24 00:07 Blood Pressure 165/69 H 08/25/24 00:07 Pulse Oximetry 100 08/25/24 00:07 Oxygen Delivery Room Air 08/24/24 13:04 <Caitlin Chirinos PA-C - Last Filed: 08/24/24 14:39> Vital Signs Temperature 97.8 F 08/24/24 13:04 Pulse Rate 75 08/24/24 13:04 Respiratory Rate 16 08/24/24 13:04 Blood Pressure 153/70 H 08/24/24 13:04 Pulse Oximetry 100 08/24/24 13:04 Oxygen Delivery Room Air 08/24/24 13:04 Temperature 97.8 F 08/24/24 13:04 Pulse Rate 71 08/25/24 00:07 Respiratory Rate 16 08/25/24 00:07 Blood Pressure 165/69 H 08/25/24 00:07 Pulse Oximetry 100 08/25/24 00:07 Oxygen Delivery Room Air 08/24/24 13:04 <Yaneli Bridges MD - Last Filed: 08/25/24 01:44> MDM - Recheck/Abnormal Lab/Rx MDM Narrative Medical decision making narrative: Patient presents here due to having persistently high blood sugars at home. She is well-appearing here, in no distress, asymptomatic currently other than the sciatica that has been steadily improving over the last week, she does have elevated blood sugar here, which after several hours has improved. She just got started on long-acting insulin by her PCP a few days ago Given a L of fluids here, with prevent her blood sugar, then given of very small dose of subcutaneous insulin. Patient comfortable with being started on short-acting at very low dose at this time, she has glucometer at home and feels comfortable checking it to adjust her insulin dose. She will follow-up with her PCP in 2 days. Patient daughter at bedside agreeable to this plan and feel comfortable with this <Yaneli Bridges MD - Last Filed: 08/25/24 01:44> Lab Data Result diagrams: 08/24/24 15:43 08/24/24 15:43 <Caitlin Chirinos PA-C - Last Filed: 08/24/24 14:39> Labs: Lab Results 08/24/24 08/24/24 08/24/24 Range/Units 13:07 15:43 21:40 WBC 8.4 (4.5-10.0) K/mm3 RBC 5.42 H (4.2-5.4) M/mm3 Hgb 14.9 (12.0-15.0) g/dL Hct 45.4 (37.0-47.0) % MCV 83.8 (80-100) fl MCH 27.5 (26-34) pg MCHC 32.8 (32-36) g/dl RDW 14.6 H (11.5-14.5) % Plt Count 241 (150-375) k/mm3 MPV 9.5 (7.4-10.4) fl Immature Gran % (Auto) 0.2 (0-0.5) % Neut % (Auto) 62.7 (45.5-73.1) % Lymph % (Auto) 25.7 (18.3-44.2) % [place] % (Auto) 9.9 H (2.6-8.5) % Eos % (Auto) 1.1 (0-4.4) % Baso % (Auto) 0.4 (0.2-1.2) % Lymph # (Auto) 2.16 (0.9-3.2) K/mm3 [place] # (Auto) 0.8 H (0.1-0.6) K/mm3 Eos # (Auto) 0.1 (0-0.3) K/mm3 Baso # (Auto) 0.0 (0.0-0.1) K/mm3 Abs Immat Gran (auto) 0.02 (0.00-0.031) K/mm3 Absolute Neuts (auto) 5.3 (1.3-6.7) K/mm3 Absolute Nucleated RBC 0.000 (0.0-0.012) K/mm3 Nucleated RBC % 0.0 (0.0-0.2) % Sodium 135 L (137-145) mmol/L Potassium 4.8 (3.4-5.0) mmol/L Chloride 99 (98-107) mmol/L Carbon Dioxide 23 (22-30) mmol/L Anion Gap 13 H (4-12) mmol/L BUN 24 H (7-17) mg/dL Creatinine 0.89 (0.7-1.0) mg/dL Estim Creat Clear Calc 46 ml/min Estimated GFR > 60 (59 - ) Glucose 267 H (65-110) mg/dL POC Capillary Glucose 327 H 277 H (65-105) mg/dl Calcium 9.7 (8.4-10.2) mg/dL Total Bilirubin 0.9 (0.2-1.3) mg/dL AST 22 (14-36) U/L ALT 26 (6-35) U/L Alkaline Phosphatase 71 (38-126) U/L Total Protein 7.0 (6.3-8.2) g/dL Albumin 4.3 (3.5-5.1) g/dL 08/25/24 Range/Units 00:09 WBC (4.5-10.0) K/mm3 RBC (4.2-5.4) M/mm3 Hgb (12.0-15.0) g/dL Hct (37.0-47.0) % MCV (80-100) fl MCH (26-34) pg MCHC (32-36) g/dl RDW (11.5-14.5) % Plt Count (150-375) k/mm3 MPV (7.4-10.4) fl Immature Gran % (Auto) (0-0.5) % Neut % (Auto) (45.5-73.1) % Lymph % (Auto) (18.3-44.2) % [place] % (Auto) (2.6-8.5) % Eos % (Auto) (0-4.4) % Baso % (Auto) (0.2-1.2) % Lymph # (Auto) (0.9-3.2) K/mm3 [place] # (Auto) (0.1-0.6) K/mm3 Eos # (Auto) (0-0.3) K/mm3 Baso # (Auto) (0.0-0.1) K/mm3 Abs Immat Gran (auto) (0.00-0.031) K/mm3 Absolute Neuts (auto) (1.3-6.7) K/mm3 Absolute Nucleated RBC (0.0-0.012) K/mm3 Nucleated RBC % (0.0-0.2) % Sodium (137-145) mmol/L Potassium (3.4-5.0) mmol/L Chloride (98-107) mmol/L Carbon Dioxide (22-30) mmol/L Anion Gap (4-12) mmol/L BUN (7-17) mg/dL Creatinine (0.7-1.0) mg/dL Estim Creat Clear Calc ml/min Estimated GFR (59 - ) Glucose (65-110) mg/dL POC Capillary Glucose 243 H (65-105) mg/dl Calcium (8.4-10.2) mg/dL Total Bilirubin (0.2-1.3) mg/dL AST (14-36) U/L ALT (6-35) U/L Alkaline Phosphatase (38-126) U/L Total Protein (6.3-8.2) g/dL Albumin (3.5-5.1) g/dL <Caitlin Chirinos PA-C - Last Filed: 08/24/24 14:39> Lab Results 08/24/24 08/24/24 08/24/24 Range/Units 13:07 15:43 21:40 WBC 8.4 (4.5-10.0) K/mm3 RBC 5.42 H (4.2-5.4) M/mm3 Hgb 14.9 (12.0-15.0) g/dL Hct 45.4 (37.0-47.0) % MCV 83.8 (80-100) fl MCH 27.5 (26-34) pg MCHC 32.8 (32-36) g/dl RDW 14.6 H (11.5-14.5) % Plt Count 241 (150-375) k/mm3 MPV 9.5 (7.4-10.4) fl Immature Gran % (Auto) 0.2 (0-0.5) % Neut % (Auto) 62.7 (45.5-73.1) % Lymph % (Auto) 25.7 (18.3-44.2) % [place] % (Auto) 9.9 H (2.6-8.5) % Eos % (Auto) 1.1 (0-4.4) % Baso % (Auto) 0.4 (0.2-1.2) % Lymph # (Auto) 2.16 (0.9-3.2) K/mm3 [place] # (Auto) 0.8 H (0.1-0.6) K/mm3 Eos # (Auto) 0.1 (0-0.3) K/mm3 Baso # (Auto) 0.0 (0.0-0.1) K/mm3 Abs Immat Gran (auto) 0.02 (0.00-0.031) K/mm3 Absolute Neuts (auto) 5.3 (1.3-6.7) K/mm3 Absolute Nucleated RBC 0.000 (0.0-0.012) K/mm3 Nucleated RBC % 0.0 (0.0-0.2) % Sodium 135 L (137-145) mmol/L Potassium 4.8 (3.4-5.0) mmol/L Chloride 99 (98-107) mmol/L Carbon Dioxide 23 (22-30) mmol/L Anion Gap 13 H (4-12) mmol/L BUN 24 H (7-17) mg/dL Creatinine 0.89 (0.7-1.0) mg/dL Estim Creat Clear Calc 46 ml/min Estimated GFR > 60 (59 - ) Glucose 267 H (65-110) mg/dL POC Capillary Glucose 327 H 277 H (65-105) mg/dl Calcium 9.7 (8.4-10.2) mg/dL Total Bilirubin 0.9 (0.2-1.3) mg/dL AST 22 (14-36) U/L ALT 26 (6-35) U/L Alkaline Phosphatase 71 (38-126) U/L Total Protein 7.0 (6.3-8.2) g/dL Albumin 4.3 (3.5-5.1) g/dL 08/25/24 Range/Units 00:09 WBC (4.5-10.0) K/mm3 RBC (4.2-5.4) M/mm3 Hgb (12.0-15.0) g/dL Hct (37.0-47.0) % MCV (80-100) fl MCH (26-34) pg MCHC (32-36) g/dl RDW (11.5-14.5) % Plt Count (150-375) k/mm3 MPV (7.4-10.4) fl Immature Gran % (Auto) (0-0.5) % Neut % (Auto) (45.5-73.1) % Lymph % (Auto) (18.3-44.2) % [place] % (Auto) (2.6-8.5) % Eos % (Auto) (0-4.4) % Baso % (Auto) (0.2-1.2) % Lymph # (Auto) (0.9-3.2) K/mm3 [place] # (Auto) (0.1-0.6) K/mm3 Eos # (Auto) (0-0.3) K/mm3 Baso # (Auto) (0.0-0.1) K/mm3 Abs Immat Gran (auto) (0.00-0.031) K/mm3 Absolute Neuts (auto) (1.3-6.7) K/mm3 Absolute Nucleated RBC (0.0-0.012) K/mm3 Nucleated RBC % (0.0-0.2) % Sodium (137-145) mmol/L Potassium (3.4-5.0) mmol/L Chloride (98-107) mmol/L Carbon Dioxide (22-30) mmol/L Anion Gap (4-12) mmol/L BUN (7-17) mg/dL Creatinine (0.7-1.0) mg/dL Estim Creat Clear Calc ml/min Estimated GFR (59 - ) Glucose (65-110) mg/dL POC Capillary Glucose 243 H (65-105) mg/dl Calcium (8.4-10.2) mg/dL Total Bilirubin (0.2-1.3) mg/dL AST (14-36) U/L ALT (6-35) U/L Alkaline Phosphatase (38-126) U/L Total Protein (6.3-8.2) g/dL Albumin (3.5-5.1) g/dL <Yaneli Bridges MD - Last Filed: 08/25/24 01:44> Discharge Plan Discharge Clinical Impression: Hyperglycemia due to diabetes mellitus <Caitlin Chirinos PA-C - Last Filed: 08/24/24 14:39> Patient Disposition: Home, Self-Care <NITA Cox Last Filed: 08/24/24 14:39> Condition: Stable <NITA Cox Last Filed: 08/24/24 14:39> Instructions: Diabetic Hyperglycemia (ED) <NITA Cox Last Filed: 08/24/24 14:39> Additional Instructions: Please follow-up with primary care doctor. Make sure that you are checking your blood sugar before each time you give yourself insulin. Come back to the ER for any further issues. <Caitlin Chirinos PA-C - Last Filed: 08/24/24 14:39> Patient Language: [place] <Caitlin Chirinos PA-C - Last Filed: 08/24/24 14:39> Prescriptions: New lidocaine 5 % adhesive patch,medicated 1 patch topical DAILY Qty: 15 0RF Rx Instructions: leave on most painful area for up to 12 hrs insulin aspart U-100 100 unit/mL (3 mL) insulin pen 4 unit subcut TID Qty: 15 0RF (DME) insulin syr/ndl U100 half anay 0.3 mL 31 gauge x 5/16 syringe See Rx Instructions .Route Qty: 100 0RF Rx Instructions: As directed No Action diclofenac sodium 1 % gel 4 g topical QID Qty: 100 3RF Rx Instructions: apply to single knee, ankle, foot; for foot includes sole/toes/top of foot lidocaine 5 % ointment 1 applic topical DAILY PRN (Reason: pain) Qty: 50 0RF gabapentin 100 mg capsule 100 mg PO QHS Qty: 30 0RF cyclobenzaprine 5 mg tablet 5 mg PO TID PRN (Reason: muscle spasm) Qty: 60 0RF celecoxib 50 mg capsule 50 mg PO BID Qty: 60 0RF insulin glargine [Lantus Solostar U-100 Insulin] 100 unit/mL (3 mL) insulin pen 10 unit subcut QAM Qty: 15 0RF (DME) FreeStyle Ferdinand 14 Day [place] Misc See Rx Instructions .Route Qty: 1 1RF Rx Instructions: As directed (DME) FreeStyle Ferdinand 14 Day Sensor Kit See Rx Instructions .Route Qty: 1 3RF Rx Instructions: As directed aspirin [Adult Low Dose Aspirin] 81 mg tablet,delayed release (DR/EC) 81 mg PO DAILY atorvastatin 40 mg tablet See Rx Instructions .ROUTE .COMPLEX Qty: 90 4RF Dose Instruction: TAKE 1 TABLET BY MOUTH EVERY DAY Rx Instructions: TAKE 1 TABLET BY MOUTH EVERY DAY azelastine 137 mcg (0.1 %) aerosol,spray See Rx Instructions .ROUTE .COMPLEX Qty: 30 0RF Dose Instruction: 137 MCG (0.137 ML) INTRANASALLY EVERY 12 HOURS ADMINISTER INTO EACH NOSTRIL Rx Instructions: 137 MCG (0.137 ML) INTRANASALLY EVERY 12 HOURS ADMINISTER INTO EACH NOSTRIL losartan 50 mg tablet See Rx Instructions .ROUTE .COMPLEX Qty: 180 2RF Dose Instruction: TAKE 1 TABLET BY MOUTH TWICE A DAY Rx Instructions: TAKE 1 TABLET BY MOUTH TWICE A DAY triamterene-hydrochlorothiazid 37.5-25 mg capsule 1 cap PO DAILY Qty: 90 3RF fluticasone propionate 50 mcg/actuation spray,suspension 1 spray intranasal DAILY Qty: 48 2RF Rx Instructions: administer into each nostril (DME) blood-glucose meter [Contour Next EZ Meter] [facility] See Rx Instructions .ROUTE .COMPLEX Qty: 1 0RF Dose Instruction: DIRECTED TO CHECK GLUCOSE TWICE DAILY Rx Instructions: DIRECTED TO CHECK GLUCOSE TWICE DAILY (DME) Contour Next Test Strips Strip See Rx Instructions .ROUTE .MEDSUPPLY Qty: 300 2RF Rx Instructions: to check glucose BID dapagliflozin propanediol [Farxiga] 10 mg tablet 10 mg PO DAILY Qty: 90 1RF clobetasol 0.05 % cream See Rx Instructions .ROUTE .COMPLEX Qty: 45 0RF Dose Instruction: APPLY TOPICALLY EVERY DAY IN THE MORNING AND IN THE EVENING NEEDED FOR PSORIASIS Rx Instructions: APPLY TOPICALLY EVERY DAY IN THE MORNING AND IN THE EVENING NEEDED FOR PSORIASIS Janumet 50-1,000 mg tablet See Rx Instructions .ROUTE .COMPLEX Qty: 180 1RF Dose Instruction: TAKE 1 TABLET BY MOUTH TWICE A DAY Rx Instructions: TAKE 1 TABLET BY MOUTH TWICE A DAY carvedilol 25 mg tablet See Rx Instructions .ROUTE .COMPLEX Qty: 180 1RF Dose Instruction: TAKE 1 TABLET BY MOUTH TWICE A DAY Rx Instructions: TAKE 1 TABLET BY MOUTH TWICE A DAY isosorbide mononitrate 30 mg tablet extended release 24 hr See Rx Instructions .ROUTE .COMPLEX Qty: 180 1RF Dose Instruction: TAKE 1 TABLET BY MOUTH TWICE A DAY Rx Instructions: TAKE 1 TABLET BY MOUTH TWICE A DAY (DME) pen needle, diabetic [BD Ultra-Fine Mini Pen Needle] 31 gauge x 3/16 needle See Rx Instructions .Route Qty: 100 2RF Rx Instructions: Inject insulin one daily <Caitlin Chirinos PA-C - Last Filed: 08/24/24 14:39> Follow-up/Referrals: Pastor Jaffe MD [Primary Care Provider] - 2 Days <Caitlin Chirinos PA-C - Last Filed: 08/24/24 14:39>
--- OUTSIDE RECORDS SUMMARY | 2024-08-24 14:48 | XMS_ITS | Clinical Summary ---
Author Organization [facility] Address [address] [place] [id number] Phone Care Team Providers Care Marketing Strategist Name Role Phone Irene Hidalgo MD Primary Care Provider [phone] Allergies No known active allergies Medications Medication [...] 09/16/2016 Overview (02/28/2021): Coronary artery disease involving [place] coronary artery of [place] heart without angina pectoris History of coronary [...] Comments Blood Pressure 146/70 06/30/2022 10:05 AM ANALYTICAL LAB TECHNICIAN Pulse 60 06/30/2022 10:05 AM ANALYTICAL LAB TECHNICIAN Temperature 35.2 C (95.4 F) 06/30/2022 10:05 AM ANALYTICAL LAB TECHNICIAN Respiratory Rate - - Oxygen Saturation - - Inhaled Oxygen Concentration - - Weight 87.1 kg (192 lb) 06/30/2022 10:05 AM ANALYTICAL LAB TECHNICIAN Height 165.1 cm (5' 5 ) 06/30/2022 10:05 AM ANALYTICAL LAB TECHNICIAN Body Mass Index 31.95 06/30/2022 10:05 AM ANALYTICAL LAB TECHNICIAN Plan of Treatment Health Maintenance Due Date Last Done Comments Pneumococcal PPSV23/PCV13 65 + Years / High and Highest Risk (1 of 4 - PCV) 1952 Diabetic Foot Exam 1956 Ophthalmology Exam 1956 Influenza Vaccine (#1) 2024 04/24/2022, 2020 Care Teams Marketing Strategist Relationship Specialty Start Date End Date Irene Hidalgo MD [address] [facility] [address] [place] [id number] PCP - General Internal Medicine 01/13/21
--- OUTSIDE RECORDS SUMMARY | 2024-08-24 14:48 | XMS_ITS | Encounter Summary ---
Author Organization [facility] Address [address] [facility] [address] [place] [id number] Care Team Providers Care Outpatient Coder Name Role Phone Irene Hidalgo MD Primary Care Provider Irene Hidalgo MD Primary Care Provider Encounter Details Date Type Department Care Team (Late st Contact Info) Description 08/10/2016 Orders Only [facility] ProviderMino MD [address] [place] [id number] Social History Tobacco Use Types Packs/Day Years Used Date Smoking Tobacco: Never Alcohol Use Standard Drinks/Week Comments No 0 (1 standard drink = 0.6 oz pur e alcohol) Comments Unknown Sex and Gender Information Value Date Recorded Sex Assigned at Not on file 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
--- OUTSIDE RECORDS SUMMARY | 2024-08-24 14:48 | XMS_ITS | Clinical Summary ---
Author Organization [facility] Address [address] [place] [address] Care Team Providers Care Industrial Court Magistrate Name Role Phone Irene Hidalgo MD Primary [...] mg tabletIndications:Pu re hypercholesterolemia ,Coronary arteriosclerosis in [place] artery Take 1 tablet (40 mg total) [...] (04/23/2022): Added automatically from request for surgery [id number] Hyperlipidemia associated with type 2 diabetes m loriitus 12/28/2021 CKD stage 2 due to type 2 diabetes mellitus ([facility]) 12/28/2021 Nonspecific abnormal results of function study o f kidney 02/28/2021 Persistent proteinuria 02/28/2021 Bilateral carotid bruits 12/17/2020 Muscle cramps 12/17/2020 Hypomagnesemia 12/17/2020 Vitamin D deficiency 12/26/2019 PAC (premature atrial contraction) 09/05/2017 History of coronary artery bypass surgery 2016 Overview (12/03/2016): Hx of CABG Coronary arteriosclerosis in [place] artery 09/16 Overview (12/03/2016): 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 BUN 20 7 - 25 mg/dL [facility] Creatinine 0.94 0.60 - 1.00 mg/dL [facility] eGFR 63 > OR = 60 mL/min/1.7 3m2 [facility] BUN/creat ratio SEE NOTE: 6 - 22 (calc) [facility] Comment: Not Reported: BUN and [...] ratio 1.7 1.0 - 2.5 (calc) [facility] Bilirubin, total 0.6 0.2 - 1.2 mg/dL [facility] Alk phos 50 37 - 153 U/L [facility] AST 19 10 - 35 U/L [facility] ALT (SGPT) 12 6 - 29 U/L [facility] Blood 03/17/2023 8:46 AM CDT 03/17/2023 8:50 AM CDT us Luz Maradiaga MD LAB BLOOD ORDERABLES Final Result [facility] [address] [place] [address] from Last 3 Months or Most Recently Relevant to Health Maintenance Insurance IDPA [facility] Care Teams Industrial Court Magistrate Relationship Specialty Start Date End Date Irene Hidalgo MD [address] [facility] [address] [place] [address] PCP - General 10/08/16
--- OUTSIDE RECORDS SUMMARY | 2024-08-24 14:48 | XMS_ITS | Referral Summary ---
Author Organization [facility] Address [address] [place] [address] Care Team Providers Care Supervisor Cold Rolling Name Role Phone Irene Hidalgo MD Primary [...] mg tabletIndications:Pu re hypercholesterolemia ,Coronary arteriosclerosis in [place] artery Take 1 tablet (40 mg total) [...] (04/23/2022): Added automatically from request for surgery [id number] Hyperlipidemia associated with type 2 diabetes m loriitus 12/28/2021 CKD stage 2 due to type 2 diabetes mellitus ([facility]) 12/28/2021 Nonspecific abnormal results of function study o f kidney 02/28/2021 Persistent proteinuria 02/28/2021 Bilateral carotid bruits 12/17/2020 Muscle cramps 12/17/2020 Hypomagnesemia 12/17/2020 Vitamin D deficiency 12/26/2019 PAC (premature atrial contraction) 09/05/2017 History of coronary artery bypass surgery 2016 Overview (12/03/2016): Hx of CABG Coronary arteriosclerosis in [place] artery 09/16 Overview (12/03/2016): 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 BUN 20 7 - 25 mg/dL [facility] Creatinine 0.94 0.60 - 1.00 mg/dL [facility] eGFR 63 > OR = 60 [...] BLOOD ORDERABLES Final Result [facility] [address] [place] [address] from Last 3 Months or Most Recently Relevant to Health Maintenance Insurance IDPA [facility] Member Subscriber Plan / Payer ( fective 2016-Present) Name:ADINA RUSSELL Relation to Subscriber:Self Name:Adina Russell Payer ID:[id number] (NAIC) Type:MEDICARE RISK OTHER Address: [address] [facility] Care Teams Supervisor Cold Rolling Relationship Specialty Start Date End Date Irene Hidalgo MD [address] [facility] [address] [place] [address] PCP - General 10/08/16
[2024-08-24 15:44] VITALS: BP 139/67; PULSE 75; RESP 16; O2SAT 100
[2024-08-24 15:49] LABS: Basophils Percent Auto 0.4 % (0.2-1.2); Eosinophils Absolute Auto 0.1 K/mm3 (0-0.3); Eosinophils Percent Auto 1.1 % (0-4.4); Hematocrit 45.4 % (37.0-47.0); Hemoglobin 14.9 g/dL (12.0-15.0); Immature Granulocyte Absolute 0.02 K/mm3 (0.00-0.031); Immature Granulocyte Percent A 0.2 % (0-0.5); Lymphocytes Absolute Auto 2.16 K/mm3 (0.9-3.2); Lymphocytes Percent Auto 25.7 % (18.3-44.2); Mean Corpuscular HGB Conc 32.8 g/dl (32-36); Mean Corpuscular Hemoglobin 27.5 pg (26-34); Mean Corpuscular Volume 83.8 fl (80-100); Mean Platelet Volume 9.5 fl (7.4-10.4); Monocytes Absolute Auto 0.8 K/mm3 (0.1-0.6); Monocytes Percent Auto 9.9 % (2.6-8.5); Neutrophils Absolute Auto 5.3 K/mm3 (1.3-6.7); Neutrophils Percent Auto 62.7 % (45.5-73.1); Platelet Count Result 241 k/mm3 (150-375); Red Blood Count 5.42 M/mm3 (4.2-5.4); Red Cell Distribution Width 14.6 % (11.5-14.5); White Blood Count 8.4 K/mm3 (4.5-10.0)
[2024-08-24 16:04] LABS: Alanine Aminotransferase 26 U/L (6-35); Albumin Level 4.3 g/dL (3.5-5.1); Alkaline Phosphatase 71 U/L (38-126); Anion Gap 13 mmol/L (4-12); Aspartate Amino Transferase 22 U/L (14-36); Bilirubin,Total 0.9 mg/dL (0.2-1.3); Blood Urea Nitrogen 24 mg/dL (7-17); Calcium 9.7 mg/dL (8.4-10.2); Carbon Dioxide 23 mmol/L (22-30); Chloride 99 mmol/L (98-107); Estimated CRCL calculation 46 ml/min; Estimated Glomerular Filt Rate > 60; Glucose 267 mg/dL (65-110); Potassium 4.8 mmol/L (3.4-5.0); Sodium 135 mmol/L (137-145)
[2024-08-24 21:43] LABS: Glucose Point of Care 277 mg/dl (65-105)
[2024-08-24] MEDS: LIDOCAINE 5% PATCH 1 PATCH TRANSDERM (23:08)
[2024-08-24] MEDS: LACTATED RINGERS 1,000 ML 999 ML IV CONT (23:08)
[2024-08-24 23:12] VITALS: BP 150/77; PULSE 81; RESP 20; O2SAT 98
[2024-08-25 00:07] VITALS: BP 165/69; PULSE 71; RESP 16; O2SAT 100
[2024-08-25 00:12] LABS: Glucose Point of Care 243 mg/dl (65-105)
[2024-08-25] MEDS: INSULIN HUMAN REGULAR (*BKC) 100 UNITS/ML SUB-Q (00:26)
== END 2024-08-25 00:40 | disposition home or self-care (01) ==
PROVIDERS: Physician Assistant; Emergency Provider Emergency Medicine; PCP Family Medicine
DX: E11.65 Type 2 diabetes mellitus with hyperglycemia (principal); I25.10 Atherosclerotic heart disease of native coronary artery without angina pectoris; E11.22 Type 2 diabetes mellitus with diabetic chronic kidney disease; I12.9 Hypertensive chronic kidney disease with stage 1 through stage 4 chronic kidney disease, or unspecified chronic kidney disease; N18.30 Chronic kidney disease, stage 3 unspecified; E11.40 Type 2 diabetes mellitus with diabetic neuropathy, unspecified; E78.2 Mixed hyperlipidemia; E55.9 Vitamin D deficiency, unspecified; E53.8 Deficiency of other specified B group vitamins; L40.9 Psoriasis, unspecified; Z95.1 Presence of aortocoronary bypass graft; Z87.891 Personal history of nicotine dependence; Z90.89 Acquired absence of other organs; Z79.82 Long term (current) use of aspirin; Z79.84 Long term (current) use of oral hypoglycemic drugs; Z79.899 Other long term (current) drug therapy; Z79.4 Long term (current) use of insulin
CPT/HCPCS: 36415; 80053; 82948; 85025; 96360; 99283; A9270; J1815; J7120

== ENCOUNTER 2025-01-02 09:55 | Outpatient (CLI) | payer OTHER, SELFPAY ==
--- NOTE | ~2025-01-02 | US_ITS ---
EXAM: ABDOMEN ULTRASOUND HISTORY: R19.5 - Other fecal abnormalities 79-year-old woman complaining of pruritis, dyspepsia and pale feces. COMPARISON: None FINDINGS: LIVER: The liver is unremarkable in echogenicity and size. GALLBLADDER: The gallbladder is markedly distended measuring more than 12 cm in length. No stones are identified within the gallbladder. No gallbladder wall thickening or pericholecystic fluid. BILE DUCTS: Common bile duct measures 16.8mm. Intrahepatic biliary ductal dilatation is also noted wi th the intrahepatic bile ducts measuring up to 5.3 mm. PANCREAS: Limited evaluation of the pancreas secondary to overlying bowel gas. However, markedly dilated pancreatic duct is visualized measuring up to 17 mm in caliber VASCULATURE : The visualized portion of the abdominal aorta is nonaneurysmal. The IVC is patent. IMPRESSION: Gallbladder hydrops. Intra and extrahepatic biliary ductal dilatation with significant dilatation of the pancreatic duct, for which cross-sectional imaging (CT or MRI) with intravenous contrast and pancreatic mass protocol is recommended. This culmination of findings, taken together, in the absence of hepatitis (all serologies performed were nonreactive) suggest a malignancy until proven otherwise. Reviewed, dictated and finalized at location A. IMPRESSION: Gallbladder hydrops. Intra and extrahepatic biliary ductal dilatation with significant dilatation of the pancreatic duct, for which cross-sectional imaging (CT or MRI) with intrav enous contrast and pancreatic mass protocol is recommended. This culmination of findings, taken together, in the absence of hepatitis (all serologies performed 01/01/2025 were nonreactive) suggest a malignancy until pro lindsey otherwise.
== END 2025-01-02 09:56 | disposition home or self-care (01) ==
LOC: MICIMG 09:56
PROVIDERS: PCP Family Medicine; Visit Provider Student in an Organized Health Care Education/Training Program
DX: K83.8 Other specified diseases of biliary tract (principal); K82.1 Hydrops of gallbladder; R79.89 Other specified abnormal findings of blood chemistry; R19.5 Other fecal abnormalities
CPT/HCPCS: 76705

== ENCOUNTER 2025-01-08 13:45 | Outpatient (CLI) | payer OTHER, SELFPAY ==
--- NOTE | ~2025-01-08 | CT_ITS ---
EXAMINATION: CT abdomen wo/w con DATE: 01/08/2025 14:49 INDICATION: Jaundice. Disease of the pancreas and biliary tract. TECHNIQUE: Computed tomography (CT) of the abdomen and pelvis was performed without and with 100 mL O mnipaque-350 intravenous contrast. Automated exposure control and iterative reconstruction technique were employed. The dose-length product was 1387.60 mGy-cm. COMPARISON: None FINDINGS: Mild atelectasis at the anterior lingula. Heart size is normal. Atherosclerotic coronary artery calci fications and change of prior median sternotomy and coronary artery bypass grafting. No pericardial o r pleural effusion. The common bile duct is dilated to 1.8 cm with mild to moderate intrahepatic bili alison ductal dilation. Liver is otherwise unremarkable. There is also prominent dilation of the main pa ncreatic duct which measures up to 1.5 cm at the body the pancreas with multiple dilated sidebranches and parenchymal atrophy in the more distal body and tail of the pancreas. There is an approximately 2 x 2.5 cm ill-defined region of relatively decreased arterial phase enhancement in the head of the p ancreas which raises some concern for malignancy. The gallbladder is dilated to 5.2 cm in maximal ellyn meter. Spleen, bilateral adrenal glands and right kidney are normal. 3.9 cm left renal cyst. Advise p ortions of bowels are unremarkable with no obstruction. There is calcified atherosclerosis of the aor ta and many of the other arteries. Moderate 50-70% stenosis at the origin of the celiac axis and mild stenosis at the origin of the superior and inferior mesenteric arteries. No pathologically enlarged abdominal or upper pelvic lymphadenopathy. Mild to moderate thoracic and lumbar spondylosis with salesperson sheet music renae mild anterior wedging at T7 and T8. IMPRESSION: 1. Intra and extra hepatic biliary ductal dilation as well as prominent dilation of the main pancreat ic duct with pancreatic atrophy of the body and tail of the pancreas, all of which could be secondary to pancreatic cancer with suspicious ill-defined 2.5 x 2.0 cm arterially hypoenhancing region at the head of the pancreas. Consider endoscopy for further evaluation with either ERCP or ultrasound guide d biopsy. Reviewed, dictated and finalized at location B. IMPRESSION: 1. Intra and extra hepatic biliary ductal dilation as well as prominent dilatio n of the main pancreatic duct with pancreatic atrophy of the body and tail of t he pancreas, all of which could be secondary to pancreatic cancer with suspicio us ill-defined 2.5 x 2.0 cm arterially hypoenhancing region at the head of the pancreas. Consider endoscopy for further evaluation with either ERCP or ultraso und guided biopsy.
== END 2025-01-08 13:46 | disposition home or self-care (01) ==
PROVIDERS: PCP Family Medicine; Visit Provider Student in an Organized Health Care Education/Training Program
DX: K86.89 Other specified diseases of pancreas (principal); K83.8 Other specified diseases of biliary tract; R17 Unspecified jaundice
CPT/HCPCS: 74170; Q9967